=== PATIENT | male | born 1985 | race Caucasian/White ===

== ENCOUNTER 2018-07-25 06:03 | Inpatient (IN) ==
[2018-07-25] MEDS ORDERED: MoRPHine SULFATE 10 MG/ML CARP/VIAL IV STA (06:10)
[2018-07-25] MEDS ORDERED: MoRPHine SULFATE 2 MG/ML CARP ONE (06:18)
[2018-07-25] MEDS ORDERED: MoRPHine SULFATE 4 MG/ML 1 ML CARP\\VIAL ONE (06:19)
[2018-07-25] MEDS ORDERED: VANCOMYCIN HCL 1,000 MG/270 ML BAG IV STA (06:25)
[2018-07-25] MEDS ORDERED: KETOROLAC 30 MG/ML VIAL IV STA (06:25)
[2018-07-25] MEDS ORDERED: AZTREONAM 2,000 MG in DEXTROSE 5% 100 ML IV STA (06:25)
[2018-07-25] MEDS ORDERED: SODIUM CHLORIDE 0.9% 1000ML 1,000 ML IV ONE (06:25)
[2018-07-25] MEDS ORDERED: LEVOFLOXACIN/D5W 750 MG/150 ML BAG IV STA (06:25)
[2018-07-25] MEDS ORDERED: VANCOMYCIN CONSULT ACTIVE PRN ×2 (06:25→11:33)
[2018-07-25] MEDS ORDERED: LIDOCAINE/EPINEPHRINE 1% 20 ML VIAL INFIL ONE (06:25)
[2018-07-25 06:36] LABS: Basophils # (auto) 0.05 K/uL (0-0.2); Basophils % (auto) 0.2 %; Eosinophils # (auto) 0.09 K/uL (0-0.5); Eosinophils % (auto) 0.4 %; Hematocrit (blood only) 45.4 % (42-52); Hemoglobin 17.1 g/dL (14.0-18.0); Immature Granulocytes # (auto) 0.11 K/uL (0.00-0.02); Immature Granulocytes % (auto) 0.5 %; Lymphocytes # (auto) 1.81 K/uL (1.2-3.4); Lymphocytes % (auto) 8.1 %; Mean Corpuscular Hgb Conc 37.7 g/dL (32-36); Mean Corpuscular Volume 87.8 fL (80-100); Mean Platelet Volume 9.6 fL (7.4-10.4); Monocytes # (auto) 2.03 K/uL (0.11-0.59); Monocytes % (auto) 9.1 %; Neutrophils # (auto) 18.13 K/uL (1.4-6.5); Neutrophils % (auto) 81.7 %; Platelet Count 325 K/uL (130-400); RDW Coefficient of Variation 12.1 % (11.5-14.5); RDW Standard Deviation 38.8 fL (36.4-46.3); Red Blood Count 5.17 M/uL (4.7-6.1); White Blood Count 22.22 K/uL (4.8-10.8)
--- NOTE | 2018-07-25 06:44 | XRay Report ---
XR chest 1V portable CLINICAL HISTORY: Sepsis dyspnea COMPARISON STUDY: No previous studies for comparison. FINDINGS: The bones soft tissues and hemidiaphragms are normal. The cardiomediastinal silhouette is n ormal. The lungs are clear. The pulmonary vasculature is normal. IMPRESSION: Negative chest. The above report was generated using voice recognition software. It may contain grammatical, syntax or spelling errors. Electronically signed by: Masoud Zheng M.D. 07/25/2018 6:42 AM
[2018-07-25] MEDS: HYDROmorphone INJ 1 MG/ML SYRINGE IV PRN ×9 (06:47→21:44)
[2018-07-25 06:49] LABS: INR 1.1 (0.9-1.1); Partial Thromboplastin Ratio 1.1; Prothrombin Time 10.8 Seconds (9.0-12.0)
[2018-07-25 06:59] LABS: Alanine Aminotransferase 25 U/L (12-78); Albumin Level 3.7 gm/dl (3.4-5.0); Aspartate Aminotransferase 12 U/L (15-37); BUN Creatinine Ratio 10.4 (10-20); Blood Urea Nitrogen 13 mg/dl (7-18); Calcium 9.5 mg/dl (8.5-10.1); Carbon Dioxide 24 mmol/L (21-32); Chloride 99 mmol/L (98-107); Creatinine Clr Calc Pharmacy 126.3 ml/min; Est GFR (African American) 88.8; Est GFR (Non-African American) 76.7; Glucose 95 mg/dl (70-99); Potassium 3.7 mmol/L (3.5-5.1); Sodium 132 mmol/L (136-145)
[2018-07-25 07:04] LABS: Albumin Globulin Ratio 0.7 (0.9-2); Alkaline Phosphatase 72 U/L (45-117); Creatine Kinase 110 U/L (39-308); Creatine Kinase MB < 1.0 ng/ml (0.5-3.6); Globulin 5.6 gm/dl (2.5-4.0); Total Protein 9.3 gm/dl (6.4-8.2); Troponin I < 0.015 ng/ml (0-0.045)
--- NOTE | 2018-07-25 07:17 | XRay Report ---
XR ankle LT min 3V routine CLINICAL HISTORY: Pt c/o left ankle pain pain COMPARISON: None. DISCUSSION: The bones and joint spaces appear intact. There is no evidence of fracture, dislocation o r bony disease. Medial soft tissue edema IMPRESSION: 1. No acute bony abnormality. 2. Medial soft tissue edema. The above report was generated using voice recognition software. It may contain grammatical, syntax or spelling errors. Electronically signed by: Masoud Zheng M.D. 07/25/2018 7:16 AM
--- NOTE | 2018-07-25 08:06 | Ultrasound Report ---
US extremity non-vascular ltd CLINICAL HISTORY: Assess infection area for abscess COMPARISON STUDY: No previous studies for comparison. FINDINGS: Complex irregular collection medial aspect left ankle. Maximum dimensions of 3.9 x 3.5 cm. Diagnostic considerations include the possibility of abscess versus hematoma. IMPRESSION: Hematoma versus abscess medial aspect left ankle. Dimensions are 3.9 x 3.5 cm. The above report was generated using voice recognition software. It may contain grammatical, syntax or spelling errors. Electronically signed by: Masoud Zheng M.D. 07/25/2018 8:03 AM
--- NOTE | 2018-07-25 10:15 | History & Physical Report ---
Date of Service July 25, 2018 Assessment & Plan (1) Cellulitis: (2) Abscess of left lower extremity: Was sent from the [facility] from left ankle abscess, erythema and tenderness. He was starting on Bactrim yesterday. LLE extremities U/S showed hematoma versus abscess medial aspect left ankle. Dimensions are 3.9 x 3.5 cm. Left ankle xray showed medial soft tissue edema. 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 Chronic pain Reflex sympathetic dystrophy Has been asking for dilaudid Will do IV pain med for about 24 to 48 hrs, than transion to oral Anxiety Depression Continue Effexor 187.5 daily Propranolol for the anxiety Continue Vystaryl prn Tourette Syndrome Continue haloperidol his current dose ADHD Ritalin was taper off by provider at the [facility] DVT px Will encourage pt to ambulate (No anticoagulant due to recent I&D) (No SCDS due to cellulitis/ pain and I&D in left L ankle CODE status FULL CODE Disposition Was being treated at the [facility] Consult telephonic case manager History of Present Illness Chief Complaint: Left ankle abscess and Cellulitis Primary Care Provider: NO PCP 33 years old male with past medical history of myotonic dystrophy, reflex sympathetic dystrophy, chronic pain, depression, general anxiety, ADHD, PTSD was sent from the [facility] for left ankle redness, swelling and pain. Patient said last Wednesday while in [facility], he said that he bumped his left ankle. He said that previously do not the area started to get red and painful. Patient said in the last few days the erythema swelling and tenderness got worse. He said that pain worsening with touching, standing or walking on his left foot. Pain improved with rest or with the pain med. Patient said that he started to have chills. He was started on double strength Bactrim yesterday. Patient has been in the [facility] in the past week. He said that he is on medical marijuana but he has not been using it since he got to the [facility]. In the ER the left ankle area incision and drainage was done by the ER physician. Patient said that he continued to have severe pain in the left ankle patient and has been asking for dilaudid. I called the [facility] to verify his medication list. denies any chest pain, palpitation, dizziness, and shortness of breath. Allergies Allergy/AdvReac Type Severity Reaction Status Date / Time codeine Allergy Mild Unknown Verified 07/26/18 14:17 Penicillins Allergy Mild Unknown Verified 07/26/18 14:17 amoxicillin Allergy Unknown Verified 07/26/18 14:17 bee venom protein (honey bee) Allergy Unknown Verified 07/26/18 14:17 Home Medications Home Medications Medication Instructions Recorded Confirmed Type benztropine 0.5 mg PO .QAM & 1400 07/25/18 07/25/18 History benztropine 1 mg PO BID 07/25/18 07/25/18 History clonidine HCl 0.3 mg PO TID 07/25/18 07/25/18 History diphenhydramine HCl [Benadryl] 50 mg PO HS 07/25/18 07/25/18 History haloperidol 2.5 mg PO . Q 1400 07/25/18 07/25/18 History haloperidol 5 mg PO BID 07/25/18 07/25/18 History hydroxyzine pamoate [Vistaril] 50 mg PO Q8 PRN 07/25/18 07/25/18 History ibuprofen 600 mg PO Q6H PRN 07/25/18 07/25/18 History lidocaine 1 patch TOPICAL DAILY PRN 07/25/18 07/25/18 History methocarbamol [Robaxin] 1,000 mg PO TID PRN 07/25/18 07/25/18 History propranolol 60 mg PO QAM 07/25/18 07/25/18 History sulfamethoxazole-trimethoprim 1 tab PO Q12H 07/25/18 07/25/18 History [Bactrim DS] venlafaxine [Effexor XR] 37.5 mg PO QAM 07/25/18 07/25/18 History venlafaxine [Effexor XR] 150 mg PO QAM 07/25/18 07/25/18 History Past Med/Surg History Medical History History of seizure Abscess of right lower extremity Cellulitis (Acute) Tourette syndrome History of MRSA infection Social History Preferred Language: Citizen Of [place] Communication Ability: Effective Specialty Cook Required: No Beliefs That Will Affect Care: None Current Living Situation: Alone and Other Current Living Situation Comment: At [place] for medication adjustment for Tourette syndrome Other Information That Helps Us Care for You: Yes (History of RSDS (reflex sympathetic dystrophy syndrome)) Feels Safe at Home: Yes Safety Concerns: Feels Safe At This Time Smoking Status: Current every day smoker Tobacco Type: cigarettes Cigarettes Per Day: 20 Do You Dip or Chew Tobacco: No Second Hand Exposure: No Tobacco Cessation Education Requested by Patient: No Hx Alcohol Use: No Hx Substance Use: Yes substance use type: marijuana Substance Use Type Other:: on Medical Marijuana for RSD (less than 1 joint's worth a day) Last Used Substance: Unknown Last Used Substance Other:: off opiates for RSD Review of Systems Review of Systems: All systems reviewed & are unremarkable except as noted in HPI & below Physical Exam Physical Exam: General- No acute distress Head- atraumatic Eyes- PERRL, EOMI, ENT- oropharynx clear Neck- supple, no JVD Lungs- clear to auscultation Heart- regular rhythm; no murmur Abdomen- normal bowel sounds, soft, nontender, obese Extremities- no calf tenderness, Left medial ankle area redness, swelling, open area from I&D with drainage Neuro- alert, oriented x 3; PERRL, EOMI; no facial palsy; no dysarthria Skin- warm & dry Results & Data Vital Signs (Past 12 Hours) Vital Signs Temp Pulse Pulse Resp BP BP Pulse Ox 07/25/18 09:53 74 16 130/81 96 07/25/18 09:02 88 18 129/72 96 07/25/18 08:24 80 18 137/84 95 07/25/18 07:33 80 16 100/77 96 07/25/18 06:54 95 07/25/18 06:53 36.8 C 84 20 132/88 95 07/25/18 06:06 37.5 C 93 H 20 125/87 97 Diagnostic Findings R ankle LT min 3V routine CLINICAL HISTORY: Pt c/o left ankle pain pain COMPARISON: None. DISCUSSION: The bones and joint spaces appear intact. There is no evidence of fracture, dislocation or bony disease. Medial soft tissue edema IMPRESSION: 1. No acute bony abnormality. 2. Medial soft tissue edema. The above report was generated using voice recognition software. It may contain grammatical, syntax or spelling errors. Electronically signed by: Masoud Zheng M.D. 07/25/2018 7:16 AM Dictated: 07/25/18 0715 Transcribed: 07/25/18714 US extremity non-vascular ltd CLINICAL HISTORY: Assess infection area for abscess COMPARISON STUDY: No previous studies for comparison. FINDINGS: Complex irregular collection medial aspect left ankle. Maximum dimensions of 3.9 x 3.5 cm. Diagnostic considerations include the possibility of abscess versus hematoma. IMPRESSION: Hematoma versus abscess medial aspect left ankle. Dimensions are 3.9 x 3.5 cm. The above report was generated using voice recognition software. It may contain grammatical, syntax or spelling errors. Electronically signed by: Masoud Zheng M.D. 07/25/2018 8:03 AM Dictated: 07/25/18 0803 Transcribed: 07/25/18 0803 R chest 1V portable CLINICAL HISTORY: Sepsis dyspnea COMPARISON STUDY: No previous studies for comparison. FINDINGS: The bones soft tissues and hemidiaphragms are normal. The cardiomedias tinal silhouette is normal. The lungs are clear. The pulmonary vasculature is normal. IMPRESSION: Negative chest. The above report was generated using voice recognition software. It may contain grammatical, syntax or spelling errors. Electronically signed by: Masoud Zheng M.D. 07/25/2018 6:42 AM Dictated: 07/25/18 0642 Transcribed: 07/25/18 0642
[2018-07-25] MEDS ORDERED: LIDOCAINE 5% 1 PATCH TD PRN (11:33)
[2018-07-25] MEDS ORDERED: IBUPROFEN 600 MG TAB PO PRN (11:33)
--- NOTE | 2018-07-25 11:51 | Emergency Department Note ---
Entered by Jyotsna Price acting as a scribe for Sumanth Albarran MD History of Present Illness General Chief complaint: Infection Stated complaint: ankle infection Time Seen by Provider: 07/25/18 06:19 Source: patient Mode of arrival: EMS Limitations: no limitations History of Present Illness Onset (ago): week(s) 1 Location: left (leg) Radiation: non-radiation Pain Consistency: + constant Maximum Pain Intensity: 8 Current Pain Intensity: 8 Relieved By: + none Exacerbated By: + movement Associated symptoms: + denies other symptoms Treatments prior to arrival: none The patient is a 33 year old male who presents to the ED with complaints of a worsening skin infection. He states about a week ago, he was jet skiing in [place] when he banged his left leg, and developed an infection. He believes he was in both bay water and sea water. He rates his pain as an 8/10 in severity. Movement worsens his pain. He notes he does have a history of prior MRSA infection. Home Medications Home Medications Medication Instructions Recorded Confirmed Type benztropine 0.5 mg PO .QAM & 1400 07/25/18 07/25/18 History benztropine 1 mg PO BID 07/25/18 07/25/18 History clonidine HCl 0.3 mg PO TID 07/25/18 07/25/18 History diphenhydramine HCl [Benadryl] 50 mg PO HS 07/25/18 07/25/18 History haloperidol 2.5 mg PO . Q 1400 07/25/18 07/25/18 History haloperidol 5 mg PO BID 07/25/18 07/25/18 History hydroxyzine pamoate [Vistaril] 50 mg PO Q8 PRN 07/25/18 07/25/18 History ibuprofen 600 mg PO Q6H PRN 07/25/18 07/25/18 History lidocaine 1 patch TOPICAL DAILY PRN 07/25/18 07/25/18 History methocarbamol [Robaxin] 1,000 mg PO TID PRN 07/25/18 07/25/18 History propranolol 60 mg PO QAM 07/25/18 07/25/18 History sulfamethoxazole-trimethoprim 1 tab PO Q12H 07/25/18 07/25/18 History [Bactrim DS] venlafaxine [Effexor XR] 37.5 mg PO QAM 07/25/18 07/25/18 History venlafaxine [Effexor XR] 150 mg PO QAM 07/25/18 07/25/18 History Allergies Allergy/AdvReac Type Severity Reaction Status Date / Time codeine Allergy Mild Unknown Unverified 07/25/18 06:41 Penicillins Allergy Mild Unknown Unverified 07/25/18 06:41 bee venom protein (honey bee) Allergy Unknown Verified 07/25/18 06:41 Past Med/Surg History Medical History Tourette syndrome History of MRSA infection Social History Preferred Language: Israeli Communication Ability: Effective Visual Specialist Required: No Beliefs That Will Affect Care: None Current Living Situation: Alone and Other Current Living Situation Comment: At [facility] for medication adjustment for Tourette syndrome Other Information That Helps Us Care for You: Yes (History of RSDS (reflex sympathetic dystrophy syndrome)) Feels Safe at Home: Yes Safety Concerns: Feels Safe At This Time Smoking Status: Current every day smoker Tobacco Type: cigarettes Cigarettes Per Day: 20 Do You Dip or Chew Tobacco: No Second Hand Exposure: No Tobacco Cessation Education Requested by Patient: No Hx Alcohol Use: No Hx Substance Use: Yes substance use type: marijuana Substance Use Type Other:: on Medical Marijuana for RSD (less than 1 joint's worth a day) Last Used Substance: Unknown Last Used Substance Other:: off opiates for RSD Review of Systems See HPI for pertinent positives & negatives. and A total of 10 systems reviewed and were otherwise negative Physical Exam Vital Signs Vital Signs - 24 hr 07/25/18 06:06 07/25/18 06:53 07/25/18 06:54 Temperature 37.5 C 36.8 C Temperature Source Oral Oral Sepsis Recent Fever Within 48 Hours Yes Sepsis New/Unexplained Change in Mental Status No Sepsis Action Taken by Nursing No Action Required Pulse Rate 93 H Pulse Rate [Right Finger] 84 Pulse Rhythm Regular Pulse Rhythm [Right Finger] Regular Pulse Strength Normal Pulse Strength [Right Finger] Normal Respiratory Rate 20 20 Respiratory Effort / Characteristics Non-Labored Spontaneous Non-Labored Spontaneous Respiratory Depth Normal Normal Blood Pressure 125/87 Blood Pressure [Right Arm] 132/88 Blood Pressure Mean 99 Blood Pressure Mean [Right Arm] 102 Pulse Oximetry 97 95 95 Oxygen Delivery Method Room Air Room Air Room Air 07/25/18 07:33 07/25/18 08:24 07/25/18 09:02 Temperature Temperature Source Sepsis Recent Fever Within 48 Hours Sepsis New/Unexplained Change in Mental Status Sepsis Action Taken by Nursing Pulse Rate Pulse Rate [Right Finger] 80 80 88 Pulse Rhythm Pulse Rhythm [Right Finger] Pulse Strength Pulse Strength [Right Finger] Respiratory Rate 16 18 18 Respiratory Effort / Characteristics Respiratory Depth Blood Pressure Blood Pressure [Right Arm] 100/77 137/84 129/72 Blood Pressure Mean Blood Pressure Mean [Right Arm] 84 101 91 Pulse Oximetry 96 95 96 Oxygen Delivery Method Room Air Room Air Room Air 07/25/18 09:53 Temperature Temperature Source Sepsis Recent Fever Within 48 Hours Sepsis New/Unexplained Change in Mental Status Sepsis Action Taken by Nursing Pulse Rate Pulse Rate [Right Finger] 74 Pulse Rhythm Pulse Rhythm [Right Finger] Pulse Strength Pulse Strength [Right Finger] Respiratory Rate 16 Respiratory Effort / Characteristics Respiratory Depth Blood Pressure Blood Pressure [Right Arm] 130/81 Blood Pressure Mean Blood Pressure Mean [Right Arm] 97 Pulse Oximetry 96 Oxygen Delivery Method Room Air GENERAL: Awake, alert, well-appearing, in no acute distress HENT: Normocephalic, atraumatic. Oropharynx unremarkable. EYES: Normal conjunctiva. Sclera non-icteric. NECK: Supple. No nuchal rigidity. FROM. No JVD. RESPIRATORY: Clear to auscultation. CARDIAC: Regular rate, normal rhythm. Extremities warm and well perfused. Pulses equal. ABDOMEN: Soft, non-distended. No tenderness to palpation. No rebound or guarding. No masses. RECTAL: Deferred. MUSCULOSKELETAL: Chest examination reveals no tenderness. The back is symmetrical on inspection without obvious abnormality. There is no CVA tenderness to palpation. No joint edema. LOWER EXTREMITIES: Calves are equal size bilaterally and non-tender. There is an area around the left ankle that is grossly swollen, there appears to be an abscess cavity present, about a quarter size, area of erythema is circumferential around the ankle about 6 inches by 6 inches in size. NEURO: Normal sensorium. No sensory or motor deficits noted. SKIN: No rash or jaundice noted. Procedures Free Text Procedures Incision & Drainage Indication: Abscess. Location: Left Ankle Verbal consent was obtained after the risks and benefits were explained, including but not limited to bleeding, scarring, infection, pain, and bone/joint/nerve damage. At this time, the risks of the procedure are less than the risks of NOT performing the procedure. A time out was taken and the correct patient and site identified. The skin was prepped with betadine and a sterile field set. The wound was anesthetized with 10 ml of 1% lidocaine without epinep hrine. The abscess cavity was entered with a number 11 blade and bloody purulent material expressed. Copious irrigation was performed using 500 CC NSS. The wound was explored for foreign bodies and none found. Debridement was not performed. Packing placed and a sterile dressing applied. Detailed wound care instructions and signs and symptoms of worsening infection reviewed with the patient. No complications and the patient tolerated the procedure well. Course 0623: The patient was evaluated in room B10 and a complete history and physical were performed. 0831: I reevaluated the patient. He is resting comfortably. 0848: [facility] The patient will be further evaluated. Consultations Consultation #1: [facility] The patient will be further evaluated. Time: 08:48 Administered Medications Discontinued Medications Hydromorphone HCl (Dilaudid) 1 mg IV Q15M PRN PRN Reason: Pain Stop: 08/08/18 06:24 Last Admin: 07/25/18 09:05 Dose: 1 mg Documented by: [id number] Admin: 07/25/18 08:24 Dose: 1 mg Documented by: [id number] Admin: 07/25/18 07:34 Dose: 1 mg Documented by: [id number] Admin: 07/25/18 07:02 Dose: 1 mg Documented by: [id number] Admin: 07/25/18 06:47 Dose: 1 mg Documented by: [id number] Aztreonam 2,000 mg/ Dextrose 110 mls @ 100 mls/hr IV NOW STA; Protocol Stop: 07/25/18 07:30 Last Infusion: 07/25/18 09:52 Dose: 0 mls/hr Documented by: [id number] Admin: 07/25/18 08:23 Dose: 100 mls/hr Documented by: [id number] Levofloxacin/Dextrose (Levaquin/D5w) 750 mg in 150 mls @ 100 mls/hr IV NOW STA Stop: 07/25/18 07:54 Last Infusion: 07/25/18 08:18 Dose: 0 mls/hr Documented by: [id number] Admin: 07/25/18 06:50 Dose: 100 mls/hr Documented by: [id number] Sodium Chloride (Nss 1000ml) 1,000 mls @ 999 mls/hr IV .Q1H1M ONE Stop: 07/25/18 07:25 Last Infusion: 07/25/18 08:18 Dose: 0 mls/hr Documented by: [id number] Admin: 07/25/18 06:52 Dose: 999 mls/hr Documented by: [id number] Vancomycin HCl (Vancomycin Hcl) 1,000 mg in 270 mls @ 125 mls/hr IV NOW STA Stop: 07/25/18 08:34 Last Admin: 07/25/18 09:53 Dose: 125 mls/hr Documented by: [id number] Ketorolac Tromethamine (Toradol) 30 mg IV NOW STA Stop: 07/25/18 06:26 Last Admin: 07/25/18 06:47 Dose: 30 mg Documented by: [id number] Lidocaine/Epinephrine (Xylocaine/Epinephrine 1%) 20 ml INFIL NOW ONE Stop: 07/25/18 06:26 Last Admin: 07/25/18 08:45 Dose: 20 ml Documented by: [id number] Morphine Sulfate (Morphine Sulfate) 6 mg IV NOW STA Stop: 07/25/18 06:11 Last Admin: 07/25/18 06:27 Dose: 6 mg Documented by: [id number] Morphine Sulfate (Morphine Sulfate) Confirm Administered Dose 2 mg .ROUTE .STK- MED ONE Stop: 07/25/18 06:19 Last Admin: 07/25/18 06:27 Dose: Not Given Documented by: [id number] Morphine Sulfate (Morphine Sulfate) Confirm Administered Dose 4 mg .ROUTE .STK- MED ONE Stop: 07/25/18 06:20 Last Admin: 07/25/18 06:27 Dose: 4 mg Documented by: [id number] Medical Decision Making Differential Diagnosis Differential diagnosis includes etiologies such as cellulitis, abscess, MRSA infection, DVT, necrotizing fasciitis, dermatitis, drug eruption, as well as others were entertained. Medical Records Attestation: I reviewed the patient's medical records. Home Medications Current Medication List: was personally reviewed by me Laboratory Data Attestation: I reviewed the patient's lab results. Result diagrams: 07/25/18 06:23 07/25/18 06:23 Lab Results 07/25/18 07/25/18 07/25/18 Range/Units 06:23 06:23 06:23 WBC 22.22 H (4.8-10.8) K/uL RBC 5.17 (4.7-6.1) M/uL Hgb 17.1 (14.0-18.0) g/dL Hct 45.4 (42-52) % MCV 87.8 (80-100) fL MCH 33.1 (25-34) pg MCHC 37.7 H (32-36) g/dL RDW Std Deviation 38.8 (36.4-46.3) fL RDW Coeff of Leon 12.1 (11.5-14.5) % Plt Count 325 (130-400) K/uL MPV 9.6 (7.4-10.4) fL Immature Gran % (Auto) 0.5 % Neut % (Auto) 81.7 % Lymph % (Auto) 8.1 % Parke % (Auto) 9.1 % Eos % (Auto) 0.4 % Baso % (Auto) 0.2 % Immature Gran # (Auto) 0.11 H (0.00-0.02) K/uL Neut # (Auto) 18.13 H (1.4-6.5) K/uL Lymph # (Auto) 1.81 (1.2-3.4) K/uL Parke # (Auto) 2.03 H (0.11-0.59) K/uL Eos # (Auto) 0.09 (0-0.5) K/uL Baso # (Auto) 0.05 (0-0.2) K/uL PT 10.8 (9.0-12.0) Seconds INR 1.1 (0.9-1.1) APTT 30.0 (21.0-31.0) Seconds PTT Ratio 1.1 Sodium 132 L (136-145) mmol/L Potassium 3.7 (3.5-5.1) mmol/L Chloride 99 (98-107) mmol/L Carbon Dioxide 24 (21-32) mmol/L Anion Gap 9.0 (3-11) BUN 13 (7-18) mg/dl Creatinine 1.23 (0.6-1.4) mg/dl Est Cr Clr Drug Dosing 126.3 ml/min Est GFR ( Amer) 88.8 Est GFR (Non-Af Amer) 76.7 BUN/Creatinine Ratio 10.4 (10-20) Glucose 95 (70-99) mg/dl Lactate (0.4-2.0) mmol/L Calcium 9.5 (8.5-10.1) mg/dl Total Bilirubin 1.0 (0.2-1) mg/dl AST 12 L (15-37) U/L ALT 25 (12-78) U/L Alkaline Phosphatase 72 (45-117) U/L Total Creatine Kinase 110 (39-308) U/L CK-MB (CK-2) < 1.0 (0.5-3.6) ng/ml CK/CKMB % Calc TNP Troponin I < 0.015 (0-0.045) ng/ml Total Protein 9.3 H (6.4-8.2) gm/dl Albumin 3.7 (3.4-5.0) gm/dl Globulin 5.6 H (2.5-4.0) gm/dl Albumin/Globulin Ratio 0.7 L (0.9-2) 07/25/ Range/Units 06:25 WBC (4.8-10.8) K/uL RBC (4.7-6.1) M/uL Hgb (14.0-18.0) g/dL Hct (42-52) % MCV (80-100) fL MCH (25-34) pg MCHC (32-36) g/dL RDW Std Deviation (36.4-46.3) fL RDW Coeff of Leon (11.5-14.5) % Plt Count (130-400) K/uL MPV (7.4-10.4) fL Immature Gran % (Auto) % Neut % (Auto) % Lymph % (Auto) % Parke % (Auto) % Eos % (Auto) % Baso % (Auto) % Immature Gran # (Auto) (0.00-0.02) K/uL Neut # (Auto) (1.4-6.5) K/uL Lymph # (Auto) (1.2-3.4) K/uL Parke # (Auto) (0.11-0.59) K/uL Eos # (Auto) (0-0.5) K/uL Baso # (Auto) (0-0.2) K/uL PT (9.0-12.0) Seconds INR (0.9-1.1) APTT (21.0-31.0) Seconds PTT Ratio Sodium (136-145) mmol/L Potassium (3.5-5.1) mmol/L Chloride (98-107) mmol/L Carbon Dioxide (21-32) mmol/L Anion Gap (3-11) BUN (7-18) mg/dl Creatinine (0.6-1.4) mg/dl Est Cr Clr Drug Dosing ml/min Est GFR ( Amer) Est GFR (Non-Af Amer) BUN/Creatinine Ratio (10-20) Glucose (70-99) mg/dl Lactate 1.0 (0.4-2.0) mmol/L Calcium (8.5-10.1) mg/dl Total Bilirubin (0.2-1) mg/dl AST (15-37) U/L ALT (12-78) U/L Alkaline Phosphatase (45-117) U/L Total Creatine Kinase (39-308) U/L CK-MB (CK-2) (0.5-3.6) ng/ml CK/CKMB % Calc Troponin I (0-0.045) ng/ml Total Protein (6.4-8.2) gm/dl Albumin (3.4-5.0) gm/dl Globulin (2.5-4.0) gm/dl Albumin/Globulin Ratio (0.9-2) Imaging Data Radiologist's Impression: Radiology results as stated below per my review and the radiologist's interpretation: XR chest 1V portable CLINICAL HISTORY: Sepsis dyspnea COMPARISON STUDY: No previous studies for comparison. FINDINGS: The bones soft tissues and hemidiaphragms are normal. The cardiomediastinal silhouette is normal. The lungs are clear. The pulmonary vasculature is normal. IMPRESSION: Negative chest. The above report was generated using voice recognition software. It may contain grammatical, syntax or spelling errors. Electronically signed by: Masoud Zheng M.D. 07/25/2018 6:42 AM XR ankle LT min 3V routine CLINICAL HISTORY: Pt c/o left ankle pain pain COMPARISON: None. DISCUSSION: The bones and joint spaces appear intact. There is no evidence of fracture, dislocation or bony disease. Medial soft tissue edema IMPRESSION: 1. No acute bony abnormality. 2. Medial soft tissue edema. The above report was generated using voice recognition software. It may contain grammatical, syntax or spelling errors. Electronically signed by: Masoud Zheng M.D. 07/25/2018 7:16 AM [facility] CLINICAL HISTORY: Assess infection area for abscess COMPARISON STUDY: No previous studies for comparison. FINDINGS: Complex irregular collection medial aspect left ankle. Maximum dimensions of 3.9 x 3.5 cm. Diagnostic considerations include the possibility of abscess versus hematoma. IMPRESSION: Hematoma versus abscess medial aspect left ankle. Dimensions are 3.9 x 3.5 cm. The above report was generated using voice recognition software. It may contain grammatical, syntax or spelling errors. Electronically signed by: Masoud Zheng M.D. 07/25/2018 8:03 AM ECG Data Attestation: I personally reviewed and interpreted this ECG as follows: Indication: other (infection) Rate (beats per minute): 88 Rhythm: normal sinus Findings: no ST depression and no ST elevation Blood Pressure Blood Pressure Findings: Elevated blood pressure Blood Pressure Disposition: elevated BP felt to be situational MDM Narrative This is a 33-year-old male who presents emergency department complaining of cellulitis and what appears to be an abscess to his leg. The patient was waterskiing in brackish water in [place] therefore I am concerned about vibrio. The patient was started on broad-spectrum antibiotics including aztreonam Levaquin and vancomycin. He also does have a history of MRSA. The wound was opened as above and irrigated with normal saline. Wound cultures were obtained. Patient does have an elevation in his white blood cell count. Because of the p atient's history I did discuss the case with the hospitalist service who agreed to admit the patient. Patient was in agreement with the treatment plan. Impression & Plan Cellulitis Discharge Plan Visit Data Chief Complaint: Infection Stated Complaint: ankle infection ED Provider: Sumanth Albarran Discharge Problem: Cellulitis Patient Disposition: Being Evaluated by Hospitalist Discharge Instructions Interventions: ED Discharge Assessment Last Done: 07/25/18 11:16 The scribe's documentation has been prepared under my direction and personally reviewed by me in its entirety. I confirm that the note above accurately reflects all work, treatment, procedures, and medical decision making performed by me.
--- NOTE | 2018-07-25 12:44 | Pharmacy Report ---
Pharmacy Abx Initial Consult - Date of Service July 25, 2018 - Pharmacy Dosing Scope Date of Consult: 07/25/18 Consultation requested by: Dr. Wilson Pharmacy is consulted to initiate Vancomycin IV dosing therapy, order appropriate labs and adjust drug dose/frequency. - Subjective The patient is a 33 year old M admitted on 07/25/18 10:19 with LLE Cellulitis and abscess of ankle. - Objective Height: 6 ft 2 in Weight: 138 kg Vital Signs (Past 12hrs): Vital Signs Temp Pulse Pulse Resp BP BP BP 07/25/18 11:29 36.9 C 78 20 149/92 H 07/25/18 11:00 77 16 143/80 H 07/25/18 09:53 74 16 130/81 07/25/18 09:02 88 18 129/72 07/25/18 08:24 80 18 137/84 07/25/18 07:33 80 16 100/77 07/25/18 06:54 07/25/18 06:53 36.8 C 84 20 132/88 07/25/18 06:06 37.5 C 93 H 20 125/87 Pulse Ox 07/25/18 11:29 97 07/25/18 11:00 96 07/25/18 09:53 96 07/25/18 09:02 96 07/25/18 08:24 95 07/25/18 07:33 96 07/25/18 06:54 95 07/25/18 06:53 95 07/25/18 06:06 97 Lab Results (24hrs): Laboratory Tests (24 Hours) 07/25/18 07/25/18 06:23 06:23 WBC 22.22 H Neut # (Auto) 18.13 H Creatinine 1.23 Est Cr Clr Drug Dosing 126.3 Total Creatine Kinase 110 Micro Results: 07/25/18 06:05 Gram Stain - Final Ankle,Left Wound Culture - Pending 07/25/18 06:42 Aerobic Blood Culture - Pending Blood Anaerobic Blood Culture - Pending 07/25/18 06:23 Aerobic Blood Culture - Pending Blood Anaerobic Blood Culture - Pending - Risk Factors for Resistance * Patient currently resident at the [facility] * Antimicrobial use within the last 90 days - started PO Bactrim DS yesterday * Patient reports history of MRSA - Assessment & Plan Assessment 33 year old M admitted from [facility] with cellulitis and Abscess of right lower extremity, initially due to jet skiing injury. Started on Bactrim DS yesterday. S/P I&D done in the ER. Received Aztreonam in the ER. Wound and blood cultures pending. Starting Vancomycin and Rocephin IV. Plan IV Vancomycin for treatment of cellulitis and abscess of right ankle. Vancomycin IV * Estimated PK Parameters: Vd 0.6 L/kg, [facility] 0.1hr-1, t1/2 6.9hr * Loading dose: 1000 mg in ED + 2500mg IV on floor = 3500mg (25 mg/kg) * Maintenance dose: 1750 mg IV (12.7 mg/kg) every 8 hours * Goal trough level for cellulitis + abscess : 15 to 20 mcg/mL * Trough level ordered for 07/26/18, will need to consider possibility of accumulation once volume fills in obese patient. * A less than traditional dose has been selected due to likelihood of drug accumulation in obese patient. Pharmacy will continue to follow and will adjust dose/frequency as necessary. Thank you.
[2018-07-25] MEDS ORDERED: cefTRIAXone SODIUM 2,000 MG in DEXTROSE 5% 50 ML IV SCH (13:00)
[2018-07-25] MEDS ORDERED: VANCOMYCIN HCL 2,500 MG in SODIUM CHLORIDE 0.9% 500 ML IV ONE (13:00)
[2018-07-25] MEDS: HYDROCODONE/ACETAMOPHEN 5/325MG TAB PO PRN ×2 (13:19→19:23)
[2018-07-25] MEDS: NICOTINE POLACRILEX 2 MG GUM MT PRN ×5 (13:21→21:33)
[2018-07-25] MEDS: BENZTROPINE MESYLATE 0.5 MG TAB PO SCH (13:21)
[2018-07-25] MEDS: HALOPERIDOL 5 MG TAB PO SCH ×2 (13:22→21:34)
[2018-07-25] MEDS: PROPRANOLOL HCL 60 MG LA CAP PO SCH (13:24)
[2018-07-25] MEDS: VENLAFAXINE HCL XR 75 MG CAPXR PO SCH (14:22)
[2018-07-25] MEDS: VENLAFAXINE HCL XR 37.5 MG CAPXR PO SCH (14:22)
[2018-07-25] MEDS ORDERED: KETOROLAC TROMETHAMINE 15 MG/ML VIAL IV PRN (14:29)
[2018-07-25] MEDS: METHOCARBAMOL 500 MG TABLET PO PRN (15:53)
[2018-07-25] MEDS: DOCUSATE SODIUM 100 MG CAP PO SCH ×2 (16:59→21:33)
[2018-07-25] MEDS ORDERED: PROMETHAZINE HCL 12.5 MG in SODIUM CHLORIDE 0.9% 50 ML IV PRN (18:46)
[2018-07-25] MEDS: BENZTROPINE MESYLATE 1 MG TAB PO SCH (21:35)
[2018-07-25] MEDS: VANCOMYCIN HCL 1,750 MG in SODIUM CHLORIDE 0.9% 500 ML IV SCH (21:45)
[2018-07-25] MEDS ORDERED: KETOROLAC 30 MG/ML VIAL IV ONE (22:25)
[2018-07-25] MEDS ORDERED: OPTIRAY 320 125ml IV PRN (23:59)
[2018-07-26] MEDS: HYDROCODONE/ACETAMOPHEN 5/325MG TAB PO PRN ×3 (00:06→08:42)
[2018-07-26] MEDS: NSS + 20MEQ KCL 20 MEQ/1,000 ML BAG IV SCH ×2 (00:55→12:54)
[2018-07-26] MEDS: HYDROmorphone INJ 1 MG/ML SYRINGE IV PRN ×12 (00:56→21:30)
[2018-07-26] MEDS ORDERED: CLINDAMYCIN 900 MG in DEXTROSE 5% 50 ML IV ONE (01:24)
[2018-07-26] MEDS: NICOTINE POLACRILEX 2 MG GUM MT PRN ×6 (01:25→23:57)
--- NOTE | 2018-07-26 01:27 | Hospitalist Progress Note ---
Date of Service July 26, 2018 Subjective Made aware by RN of worsening redness on left ankle. Persistent bloody, purulent discharge as per RN. Patient complaining of increased pain. No fever, no chills. CT lower LLE initial read: Skin thickening upper medial aspect of left ankle associated with soft tissue edema and gas concerning for soft tissue infection/cellulitis. Gas could be related to penetrating injury to indicate gas-forming infection. Necrotizing fasciitis completely excluded. AP Worsening RLE abscess/swelling sp drainage at the ER hx traumatic wound Possibility of necrotizing fasciitis on initial CT read No overt sepsis for now Add IV Ertapenem (Imipenem contraindicated with patient's history of seizures), Clindamycin to IV Vancomycin for appropriate coverage for possible necrotizing fasciitis. Stop Ceftriaxone. Follow official CT read Orthopedics consult in a.m. RE RLE cellulitis/abscess status post drainage possible necrotizing fasciitis on initial CT read N.p.o. for now in anticipation of debridement procedure. Patient updated of developments and plan of care at bedside. Will relay to AM provider. Results & Data Vital Signs (Past 12 Hours) Vital Signs Temp Pulse Resp BP Pulse Ox 07/26/18 00:09 36.9 C 67 18 114/75 97 07/25/18 15:34 37.0 C 75 18 120/74 96
[2018-07-26] MEDS ORDERED: IMIPENEM/CILASTATIN CONSULT ACTIVE PRN (01:38)
[2018-07-26] MEDS ORDERED: CLINDAMYCIN CONSULT ACTIVE PRN (01:48)
[2018-07-26] MEDS ORDERED: IMIPENEM/CILASTATIN SODIUM 1,000 MG in DEXTROSE 5% 250 ML IV SCH (02:00)
[2018-07-26] MEDS ORDERED: HYDROmorphone INJ 0.5 MG/0.5 ML SYR IV STA (02:18)
[2018-07-26] MEDS ORDERED: ERTAPENEM SODIUM 1,000 MG in SODIUM CHLORIDE 0.9% 50 ML IV SCH (03:00)
[2018-07-26] MEDS: VANCOMYCIN HCL 1,750 MG in SODIUM CHLORIDE 0.9% 500 ML IV SCH ×3 (05:00→23:09)
--- NOTE | 2018-07-26 06:31 | Ultrasound Report ---
US venous doppler LE LT CLINICAL HISTORY: Left leg swelling COMPARISON STUDY: No previous studies for comparison. FINDINGS: Real-time and color flow Doppler imaging were performed. Flow was seen within the femoral, popliteal and calf veins with no intraluminal thrombus demonstrated. The saphenous vein is patent. IMPRESSION: No evidence of left lower extremity DVT. Electronically signed by: Tae Junior M.D. 07/26/2018 6:30 AM
--- NOTE | 2018-07-26 07:13 | CT Scan Report ---
LEFT ANKLE CT CT DOSE: 493.41 mGy.cm HISTORY: worsening L ankle swelling, hx abscess drainage TECHNIQUE: Multiaxial CT images of the left ankle were performed and reformatted in the sagittal and coronal plane following the use of intravenous contrast. A dose lowering technique was utilized adhe ring to the principles of ALARA. COMPARISON: Left ankle ultrasound 07/25/2018. FINDINGS: Subcutaneous fat stranding, edema, and skin thickening along the medial aspect of the ankle . There is associated 1.3 focus of subcutaneous gas within the medial ankle. Therefore, this is herminia rning for soft tissue infection/cellulitis. The gas could be related to penetrating injury, developin g abscess, or a necrotizing fasciitis. Due to this area of thickening there is a superficial vein whi ch is thrombosed. This appears to represent the distal greater saphenous vein. This also demonstrates wall enhancement consistent with a thrombophlebitis. No cortical destruction or periosteal reaction to suggest osteomyelitis at this time. No fracture or dislocation within the left ankle. IMPRESSION: 1. A 1.3 cm focus of subcutaneous gas within the medial ankle with associated skin thickening and sub cutaneous edema. Therefore, this is concerning for soft tissue infection/cellulitis. The gas could be related to penetrating injury, developing abscess, or a necrotizing fasciitis. 2. The distal greater saphenous vein is thrombosed deep to this area of suspected infection within th e medial ankle. Electronically signed by: Emil Wilson M.D. 07/26/2018 7:12 AM
[2018-07-26 07:24] LABS: BUN Creatinine Ratio 12.4 (10-20); Calcium 8.5 mg/dl (8.5-10.1); Creatinine Clr Calc Pharmacy 172.6 ml/min; Est GFR (African American) 129.6; Est GFR (Non-African American) 111.8
[2018-07-26 07:33] LABS: Hematocrit (blood only) 38.6 % (42-52); Mean Corpuscular Hgb Conc 36.3 g/dL (32-36); Mean Corpuscular Volume 89.4 fL (80-100); Mean Platelet Volume 9.4 fL (7.4-10.4); Platelet Count 262 K/uL (130-400); RDW Coefficient of Variation 12.2 % (11.5-14.5); RDW Standard Deviation 39.9 fL (36.4-46.3); Red Blood Count 4.32 M/uL (4.7-6.1); White Blood Count 10.15 K/uL (4.8-10.8)
[2018-07-26] MEDS: HALOPERIDOL 5 MG TAB PO SCH ×3 (07:52→20:36)
[2018-07-26] MEDS: BENZTROPINE MESYLATE 0.5 MG TAB PO SCH ×2 (07:52→12:54)
[2018-07-26] MEDS: DOCUSATE SODIUM 100 MG CAP PO SCH ×2 (07:52→20:38)
[2018-07-26] MEDS: PROPRANOLOL HCL 60 MG LA CAP PO SCH (07:53)
[2018-07-26] MEDS: VENLAFAXINE HCL XR 37.5 MG CAPXR PO SCH (07:53)
[2018-07-26] MEDS: BENZTROPINE MESYLATE 1 MG TAB PO SCH ×2 (07:53→20:38)
[2018-07-26] MEDS: VENLAFAXINE HCL XR 75 MG CAPXR PO SCH (07:54)
[2018-07-26] MEDS ORDERED: ERTAPENEM CONSULT ACTIVE PRN (09:00)
[2018-07-26] MEDS: CLINDAMYCIN 900 MG in DEXTROSE 5% 50 ML IV SCH ×2 (10:12→17:57)
[2018-07-26] MEDS ORDERED: HYDROCODONE/ACETAMOPHEN 5/325MG TAB PO PRN (11:38)
[2018-07-26] MEDS ORDERED: VANCOMYCIN TROUGH ONE (12:30)
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
[2018-07-26] MEDS ORDERED: PROPOFOL IV EMULSION 10 MG/ML 20 ML VIAL IV ONE (14:27)
[2018-07-26] MEDS ORDERED: LIDOCAINE HCL 2% 2 ML VIAL/AMP(20MG/ML) INFIL ONE (14:27)
[2018-07-26] MEDS ORDERED: fentaNYL citrate 100 MCG/2 ML VIAL ONE ×2 (14:27→15:38)
[2018-07-26] MEDS ORDERED: MIDAZOLAM HCL 1 MG/ML 2ML VIAL ONE (14:27)
[2018-07-26] MEDS ORDERED: BACITRACIN INJ 50,000 UNIT VIAL ONE (14:42)
--- NOTE | 2018-07-26 14:50 | Anesthesiology Consultation ---
Date of Service July 26, 2018 Assessment & Plan Chart Review Chart Review: Acceptable Risk for Surgery and Patient NOT seen in Pre Admission Testing Consults Requested none ASA ASA3 Proposed Anesthesia Anesthesia Type: General Risk / Benefits Reviewed With: PT / POA / Parent / Guardian, Accepts Plan and Informed Consent Obtained History Surgery Operation Date: 07/26/18 14:35 Proposed Procedures p Left Lower Extremity Incision and Drainage - Noam Phillips, Height/Weight Height: 6 ft 2 in Weight: 138 kg Allergies Allergy/AdvReac Type Severity Reaction Status Date / Time codeine Allergy Mild Unknown Verified 07/26/18 14:17 Penicillins Allergy Mild Unknown Verified 07/26/18 14:17 amoxicillin Allergy Unknown Verified 07/26/18 14:17 bee venom protein (honey bee) Allergy Unknown Verified 07/26/18 14:17 Medications Home Medications Medication Instructions Recorded Confirmed Last Taken benztropine 0.5 mg PO .QAM & 1400 07/25/18 07/25/18 07/24/18 benztropine 1 mg PO BID 07/25/18 07/25/18 07/24/18 clonidine HCl 0.3 mg PO TID 07/25/18 07/25/18 07/24/18 diphenhydramine HCl [Benadryl] 50 mg PO HS 07/25/18 07/25/18 07/24/18 haloperidol 2.5 mg PO . Q 1400 07/25/18 07/25/18 07/24/18 haloperidol 5 mg PO BID 07/25/18 07/25/18 07/24/18 hydroxyzine pamoate [Vistaril] 50 mg PO Q8 PRN 07/25/18 07/25/18 07/24/18 ibuprofen 600 mg PO Q6H PRN 07/25/18 07/25/18 07/24/18 lidocaine 1 patch TOPICAL DAILY PRN 07/25/18 07/25/18 Unknown methocarbamol [Robaxin] 1,000 mg PO TID PRN 07/25/18 07/25/18 07/24/18 propranolol 60 mg PO QAM 07/25/18 07/25/18 07/24/18 sulfamethoxazole-trimethoprim 1 tab PO Q12H 07/25/18 07/25/18 07/24/18 [Bactrim DS] venlafaxine [Effexor XR] 37.5 mg PO QAM 07/25/18 07/25/18 07/24/18 venlafaxine [Effexor XR] 150 mg PO QAM 07/25/18 07/25/18 07/25/18 Active Medications Generic Name Dose Route Start Last Admin Trade Name Freq PRN Reason Stop Dose Admin Hydrocodone Bitart/Acetaminophen 1 - 2 tab 07/26/18 11:38 07/26/18 12:05 [place] 5/325 PO 08/08/18 11:32 2 tab Q4H PRN Administration Pain Benztropine Mesylate 1 mg 07/25/18 21:00 07/26/18 07:53 Cogentin PO 08/24/18 20:59 1 mg BID ROSALIE Administration Benztropine Mesylate 0.5 mg 07/25/18 14:00 07/26/18 12:54 Cogentin PO 08/24/18 13:59 0.5 mg BID@0900,1400 ROSALIE Administration Clonidine HCl 0.3 mg 07/25/18 14:00 07/26/18 12:55 Catapress PO 08/24/18 13:59 0.3 mg TID ROSALIE Administration Diphenhydramine HCl 50 mg 07/25/18 21:00 07/25/18 21:34 Benadryl Capsule PO 08/24/18 20:59 50 mg HS ROSALIE Administration Docusate Sodium 100 mg 07/25/18 16:30 07/26/18 07:52 Colace PO 08/24/18 16:29 100 mg BID ROSALIE Administration Haloperidol 2.5 mg 07/25/18 14:00 07/26/18 12:54 Haldol PO 08/24/18 13:59 2.5 mg 1400 ROSALIE Administration Haloperidol 5 mg 07/25/18 21:00 07/26/18 07:52 Haldol PO 08/24/18 20:59 5 mg BID ROSALIE Administration Hydromorphone HCl 1 mg 07/25/18 11:33 07/26/18 14:02 Dilaudid IV 08/08/18 11:32 1 mg Q3H PRN Administration Pain Hydroxyzine HCl 50 mg 07/25/18 11:33 07/25/18 21:36 Vistaril PO 08/24/18 11:32 50 mg Q8 PRN Administration Anxiety Vancomycin HCl 1,750 mg/ 535 mls @ 200 mls/hr 07/25/18 21:00 07/26/18 12:53 Sodium Chloride IV 07/26/18 16:00 200 mls/hr Q8H ROSALIE Administration Protocol Promethazine HCl 12.5 mg/ 50.5 mls @ 202 mls/hr 07/25/18 18:46 07/25/18 19:45 Sodium Chloride IV 08/24/18 18:45 Infused Q8H PRN Infusion Nausea And Vomiting Potassium Chloride/Sodium Chloride 20 meq in 1,000 mls @ 75 mls/hr 07/25/18 23:45 07/26/18 12:54 Normal Saline W/20 Meq Kcl IV 08/24/18 23:44 75 mls/hr .[id number] ROSALIE Administration Clindamycin Phosphate 900 mg/ 56 mls @ 112 mls/hr 07/26/18 10:00 07/26/18 10:44 Dextrose IV 08/05/18 09:59 Infused Q8H ROSALIE Infusion Ioversol 125 ml 07/25/18 23:59 07/25/18 23:59 Optiray 320 125ml IV 07/29/18 23:58 119 ml ONCE PRN Administration Interaction Checking Lidocaine 1 patch 07/25/18 11:33 07/25/18 15:54 Lidoderm 5% TD 1 patch DAILY PRN Administration Pain Methocarbamol 1,000 mg 07/25/18 11:33 07/25/18 15:53 Robaxin PO 08/24/18 11:32 1,000 mg TID PRN Administration Pain Miscellaneous 1 ea 07/25/18 21:00 07/25/18 21:36 Remove Lidoderm Patch N/A 08/24/18 20:59 1 ea DAILY@2100 ROSALIE Administration Nicotine Polacrilex 1 piece 07/25/18 11:33 07/26/18 07:54 Nicorette 2mg MT 08/24/18 11:32 1 piece PRN PRN Administration tobacco abuse Propranolol HCl 60 mg 07/26/18 09:00 07/26/18 07:53 Inderal La PO 08/25/18 08:59 60 mg QAM ROSALIE Administration Venlafaxine HCl 37.5 mg 07/26/18 09:00 07/26/18 07:53 Effexor Extended Release PO 08/25/18 08:59 37.5 mg QAM ROSALIE Administration Venlafaxine HCl 150 mg 07/26/18 09:00 07/26/18 07:54 Effexor Extended Release PO 08/25/18 08:59 150 mg QAM ROSALIE Administration NPO Date Last Intake of Fluids: 07/25/18 Time Last Intake of Fluids: 22:00 Last Intake of Fluids Comment: Sips of water with meds today. Date Last Intake of Solids: 07/26/18 Time Last Intake of Solids: 08:00 Past Medical History Medical History History of seizure Abscess of right lower extremity Cellulitis (Acute) Tourette syndrome History of MRSA infection Exercise / Class Metabolic Activity III < 4 Walking/Shop/Light housework Past Anesthesia History No Hx of Anesthesia Complications and No Family Hx of Anesthesia Complications History of PONV No Hx of PONV and No Hx of Motion Sickness Social History Smoking Status: Current every day smoker tobacco type: cigarettes Smoking cigarettes per day: 20 Do You Dip or Chew Tobacco: No Hx Alcohol Use: No Hx Substance Use: Yes substance use type: marijuana Substance Use Type Other:: on Medical Marijuana for RSD (less than 1 joint's worth a day) Last Used Substance: Unknown Last Used Substance Other:: off opiates for RSD Physical Exam Vital Signs Last Vital Signs Temp 36.8 C 07/26/18 14:14 Pulse 59 L 07/26/18 14:14 Resp 20 07/26/18 14:14 BP 109/81 07/26/18 14:14 Pulse Ox 96 07/26/18 14:14 Constitutional + morbidly obese ENMT Mouth: + dentition abnormality, + dental caries and + poor dentition Thyromental Distance: > or= 3.5 Finger Breadths Mallampati Class: II Neck normal visual inspection, trachea midline and + facial hair; neck extension not limited Respiratory normal respiratory effort Auscultation: lungs clear to auscultation bilaterally Cardiovascular Rate/Rhythm: regular rate and regular rhythm Heart Sounds: no murmur Musculoskeletal Spine: normal cervical ROM Neurologic moves all extremities Motor/Sensory: no sensory deficit Psychiatric Orientation: alert and oriented x 3 Testing Electrocardiogram Date: 07/25/18 Findings: + NSR @ (at 88;minor NS IVCD) Chest X-Ray Date: 07/25/18 Findings: + NAD
--- NOTE | 2018-07-26 14:56 | History & Physical Bridge Note ---
Date of Service July 26, 2018 History & Physical Bridge Note I have examined the patient, reviewed the History & Physical and in the interval since the performance of the History & Physical I have noted the following changes of clinical significance: no changes noted
[2018-07-26] MEDS: LEVOFLOXACIN/D5W 750 MG/150 ML BAG IV SCH (14:59)
[2018-07-26] MEDS ORDERED: ONDANSETRON INJ 2 MG/ML 2 ML VIAL IV PRN ×2 (15:20→16:11)
[2018-07-26] MEDS ORDERED: FLUMAZENIL 0.1 MG/1 ML 10 ML VIAL IV PRN (15:20)
[2018-07-26] MEDS ORDERED: ATROPINE SULFATE 0.1 MG/ML 10ML SYR IV PRN (15:20)
[2018-07-26] MEDS ORDERED: ePHEDrine sulfate 50 MG/ML AMP IV PRN (15:20)
[2018-07-26] MEDS ORDERED: PROMETHAZINE HCL 12.5 MG in SODIUM CHLORIDE 0.9% 50 ML IV PRN (15:20)
[2018-07-26] MEDS ORDERED: NALOXONE HCL 0.4 MG/1 ML VIAL/CARP IV PRN ×2 (15:20→16:11)
[2018-07-26] MEDS ORDERED: ONDANSETRON INJ 2 MG/ML 2 ML VIAL ONE (15:39)
[2018-07-26] MEDS ORDERED: KETOROLAC 30 MG/ML VIAL ONE (15:39)
--- NOTE | 2018-07-26 16:04 | Post Operative Brief Note ---
Immediate Post Op Note v1 Date of Surgery July 26, 2018 Pre & Post Diagnosis Operation Date: 07/26/18 14:35 Pre-Op Diagnosis: Left Ankle Abcess/Cellulitis Post-Op Diagnosis: Left Ankle Abcess/Cellulitis Procedure Operation Date: 07/26/18 14:35 Actual Procedures p Left Lower Extremity Incision and Drainage(Left) - Noam Phillips DO Surgeon Noam Phillips DO Fire Extinguisher Tester none Estimated Blood Loss 45 Findings Consistent with Post-Op Diagnosis Fluids 300 cc LR Specimens wound cultures x 2 Drains Other (Wound vac, medial distal tibia) Anesthesia Type General Complications none Disposition Disposition: Recovery Room Overlapping Procedure I was present for: the critical portions of procedure. I was immediately available: during the entire case. Back up surgeon: was not required during procedure.
[2018-07-26] MEDS ORDERED: METOCLOPRAMIDE HCL INJ 5 MG/ML 2 ML VIAL IV PRN (16:11)
[2018-07-26] MEDS ORDERED: BISACODYL 10 MG SUPP PR PRN (16:11)
[2018-07-26] MEDS: fentaNYL citrate 100 MCG/2 ML VIAL IV PRN ×4 (16:38→16:55)
--- NOTE | 2018-07-26 17:08 | Hospitalist Progress Note ---
Date of Service July 26, 2018 Assessment & Plan (1) Cellulitis: (2) Abscess of left lower extremity: Was sent from the [facility] from left ankle abscess, erythema and tenderness. He was starting on Bactrim yesterday. LLE extremities U/S showed hematoma versus abscess medial aspect left ankle. Dimensions are 3.9 x 3.5 cm. Left ankle xray showed medial soft tissue edema. 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 as per documentation from the [facility] Chronic pain Reflex sympathetic dystrophy Was prescribed vapor marijuana, but has not been getting it at the [facility] for about 2 weeks Has been getting dilaudid and percocet round the clock Will consult pain management Anxiety Depression Continue Effexor 187.5 daily Propranolol for the anxiety Continue Vystaryl prn Tourette Syndrome Continue haloperidol his current dose ADHD Ritalin was taper off by provider at the [facility] DVT px Will encourage pt to ambulate (No anticoagulant due to recent I&D) (No SCDS due to cellulitis/ pain and I&D in left L ankle CODE status FULL CODE Disposition Was being treated at the [facility] Consult correctional counselor/case manager Subjective Pt was seen and examined Lying in bed with no distress Pt said that he continues to have alot of pain He said that the pain medication does not seem to last Denies any chest pain, palpitation, dizziness, fever and SOB Physical Exam Physical Exam: General- No acute distress Head- atraumatic Eyes- PERRL, EOMI, ENT- oropharynx clear Neck- supple, no JVD Lungs- clear to auscultation Heart- regular rhythm; no murmur Abdomen- normal bowel sounds, soft, nontender, obese Extremities- no calf tenderness, Left medial ankle area redness, swelling, open area from I&D with drainage Neuro- alert, oriented x 3; PERRL, EOMI; no facial palsy; no dysarthria Skin- warm & dry Results & Data Vital Signs (Past 12 Hours) Vital Signs Temp Pulse Pulse Resp BP BP Pulse Ox 07/26/18 17:00 68 15 122/84 97 07/26/18 16:50 69 10 L 128/92 96 07/26/18 16:40 65 17 127/77 96 07/26/18 16:30 63 10 L 130/81 98 07/26/18 16:20 70 14 111/82 99 07/26/18 16:10 36.0 C L 63 13 117/77 99 07/26/18 14:14 36.8 C 59 L 20 109/81 96 07/26/18 12:50 60 111/75 07/26/18 07:39 36.7 C 62 18 107/71 96
--- NOTE | 2018-07-26 17:26 | Anesthesiology Progress Note ---
Date of Service July 26, 2018 Anesthesia Post Procedure Vital Signs Vital Signs: Temp Pulse Pulse Resp BP BP Pulse Ox 07/26/18 17:20 69 12 110/72 99 07/26/18 17:10 65 14 107/66 98 07/26/18 17:00 68 15 122/84 97 07/26/18 16:50 69 10 L 128/92 96 07/26/18 16:40 65 17 127/77 96 07/26/18 16:30 63 10 L 130/81 98 07/26/18 16:20 70 14 111/82 99 07/26/18 16:10 36.0 C L 63 13 117/77 99 07/26/18 14:14 36.8 C 59 L 20 109/81 96 07/26/18 12:50 60 111/75 07/26/18 07:39 36.7 C 62 18 107/71 96 07/26/18 00:09 36.9 C 67 18 114/75 97 Pain Intensity Left Ankle: Pain Intensity: 5 Transfer of Care Handoff Completed per policy Notes Mental Status: alert / awake / arousable Patient Amnestic to Procedure: Yes Nausea / Vomiting: adequately controlled Pain: adequately controlled Airway Patency, RR, SpO2: stable & adequate BP & HR: stable & adequate Hydration State: stable & adequate Anesthetic Complications: no major complications apparent
[2018-07-26] MEDS: SODIUM CHLORIDE 0.9% 1000ML 1,000 ML IV SCH (17:57)
[2018-07-26] MEDS: KETOROLAC 30 MG/ML VIAL IV SCH ×2 (18:02→23:57)
[2018-07-26] MEDS: OXYCODONE HCL IR 5 MG TAB (IMMEDIATE RELEASE) PO PRN ×2 (18:26→23:08)
[2018-07-26] MEDS: OXYCODONE HCL 10 MG TABCR (OXYCONTIN) PO SCH (20:35)
[2018-07-26] MEDS: SENNA 8.6 MG TAB PO SCH (20:42)
[2018-07-26] MEDS ORDERED: DOCUSATE SODIUM 100 MG CAP PO SCH (21:00)
--- NOTE | 2018-07-26 22:07 | Orthopedic Progress Note ---
Date of Service July 26, 2018 Assessment & Plan (1) Abscess of left lower extremity: s/p I+D LLE, wound vac application -IV abx vanco/levaquin -WBAT LLE -Ice/elevation -PT/OT -Wound care consultation -DVT ppx - Heparin sq, may DC on ASA BID -AM labs -Follow IO cultures Subjective Post Operative Progress Note Patient seen in PACU, comfortable, denies complaints, pain well controlled, no acute issues. Review of Systems Review of Systems: All systems reviewed & are unremarkable except as noted in HPI & below Constitutional: as per Subjective / HPI Physical Exam Physical Exam: LLE NVSI +EHL/FHL/TA/GS SILT grossly, +2 DP pulse, compartments soft NT, wound vac in place. Constitutional: WD/WN, vitals as above Results & Data Vital Signs (Past 12 Hours) Vital Signs Temp Pulse Pulse Pulse Resp BP BP 07/26/18 20:33 36.5 C 63 18 112/73 07/26/18 19:44 36.6 C 64 108/69 07/26/18 18:34 36.7 C 65 20 116/73 07/26/18 18:08 36.9 C 71 20 114/69 07/26/18 17:30 36.2 C L 70 12 103/66 07/26/18 17:20 69 12 110/72 07/26/18 17:10 65 14 107/66 07/26/18 17:00 68 15 122/84 07/26/18 16:50 69 10 L 128/92 07/26/18 16:40 65 17 127/77 07/26/18 16:30 63 10 L 130/81 07/26/18 16:20 70 14 111/82 07/26/18 16:10 36.0 C L 63 13 117/77 07/26/18 14:14 36.8 C 59 L 20 109/81 07/26/18 12:50 60 111/75 Pulse Ox 07/26/18 20:33 98 07/26/18 19:44 96 07/26/18 18:34 95 07/26/18 18:08 95 07/26/18 17:30 99 07/26/18 17:20 99 07/26/18 17:10 98 07/26/18 17:00 97 07/26/18 16:50 96 07/26/18 16:40 96 07/26/18 16:30 98 07/26/18 16:20 99 07/26/18 16:10 99 07/26/18 14:14 96 07/26/18 12:50
[2018-07-26] MEDS: ACETAMINOPHEN 500 MG TAB PO SCH (22:20)
[2018-07-27] MEDS: HYDROmorphone INJ 1 MG/ML SYRINGE IV PRN ×7 (00:53→22:33)
[2018-07-27] MEDS: CLINDAMYCIN 900 MG in DEXTROSE 5% 50 ML IV SCH ×3 (01:55→17:39)
[2018-07-27] MEDS: OXYCODONE HCL IR 5 MG TAB (IMMEDIATE RELEASE) PO PRN ×2 (04:05→11:28)
[2018-07-27] MEDS: NICOTINE POLACRILEX 2 MG GUM MT PRN ×3 (04:06→21:21)
[2018-07-27] MEDS: SODIUM CHLORIDE 0.9% 1000ML 1,000 ML IV SCH (04:11)
[2018-07-27] MEDS: KETOROLAC 30 MG/ML VIAL IV SCH ×2 (06:10→12:35)
[2018-07-27] MEDS: HEPARIN SOD 5,000 UNIT/0.5 ML VIAL SQ SCH ×3 (06:10→21:27)
[2018-07-27] MEDS: ACETAMINOPHEN 500 MG TAB PO SCH ×3 (06:10→21:25)
[2018-07-27 06:22] LABS: Hematocrit (blood only) 36.1 % (42-52); Hemoglobin 12.5 g/dL (14.0-18.0); Mean Corpuscular Hgb Conc 34.6 g/dL (32-36); Mean Corpuscular Volume 89.8 fL (80-100); Mean Platelet Volume 9.2 fL (7.4-10.4); Platelet Count 278 K/uL (130-400); RDW Coefficient of Variation 12.1 % (11.5-14.5); RDW Standard Deviation 39.8 fL (36.4-46.3); Red Blood Count 4.02 M/uL (4.7-6.1); White Blood Count 8.69 K/uL (4.8-10.8)
[2018-07-27 06:54] LABS: BUN Creatinine Ratio 10.8 (10-20); Calcium 8.8 mg/dl (8.5-10.1); Creatinine Clr Calc Pharmacy 171.5 ml/min; Est GFR (African American) 129.6; Est GFR (Non-African American) 111.8; Potassium 4.2 mmol/L (3.5-5.1)
[2018-07-27] MEDS: DOCUSATE SODIUM 100 MG CAP PO SCH ×2 (09:10→21:26)
[2018-07-27] MEDS: OXYCODONE HCL 10 MG TABCR (OXYCONTIN) PO SCH (09:10)
[2018-07-27] MEDS: BENZTROPINE MESYLATE 0.5 MG TAB PO SCH ×2 (09:11→13:47)
[2018-07-27] MEDS: HALOPERIDOL 5 MG TAB PO SCH ×3 (09:12→21:24)
[2018-07-27] MEDS: VENLAFAXINE HCL XR 37.5 MG CAPXR PO SCH (09:13)
[2018-07-27] MEDS: BENZTROPINE MESYLATE 1 MG TAB PO SCH ×2 (09:13→21:23)
[2018-07-27] MEDS: VENLAFAXINE HCL XR 75 MG CAPXR PO SCH (09:14)
[2018-07-27] MEDS: MULTIVITAMIN TAB PO SCH (09:14)
[2018-07-27] MEDS: PROPRANOLOL HCL 60 MG LA CAP PO SCH (09:16)
[2018-07-27] MEDS: VANCOMYCIN HCL 1,750 MG in SODIUM CHLORIDE 0.9% 500 ML IV SCH ×2 (09:20→18:33)
--- NOTE | 2018-07-27 09:42 | Orthopedic Progress Note ---
Date of Service July 27, 2018 POD #1 s/p Left Lower Extremity Incision and Drainage Assessment & Plan (1) Abscess of left lower extremity: POD #1 s/p I+D LLE, wound vac application -IV abx vanco/levaquin -WBAT LLE -Ice/elevation -PT/OT -Wound care consultation -DVT ppx - Heparin sq, june DC on ASA BID Subjective he is resting comfortably in bed, denies complaints, pain well controlled. denies fever/chills Physical Exam Musculoskeletal: Left lower extremity: NVDI, +EHL/FHL/TA/GS SILT grossly, +2 DP pulse, compartments soft NT, wound vac in place. Results & Data Vital Signs (Past 12 Hours) Vital Signs Temp Pulse Resp BP BP Pulse Ox 07/27/18 07:28 36.4 C L 62 18 113/74 95 07/27/18 04:40 111/67 07/27/18 03:58 36.6 C 64 18 102/63 103/74 96 07/26/18 23:00 36.7 C 66 18 116/77 96 Laboratory Results Laboratory Results WBC 8.69 K/uL (4.8-10.8) 07/27/18 05:38 RBC 4.02 M/uL (4.7-6.1) L 07/27/18 05:38 Hgb 12.5 g/dL (14.0-18.0) L 07/27/18 05:38 Hct 36.1 % (42-52) L 07/27/18 05:38 MCV 89.8 fL (80-100) 07/27/18 05:38 MCH 31.1 pg (25-34) 07/27/18 05:38 MCHC 34.6 g/dL (32-36) 07/27/18 05:38 RDW Std Deviation 39.8 fL (36.4-46.3) 07/27/18 05:38 RDW Coeff of Leon 12.1 % (11.5-14.5) 07/27/18 05:38 Plt Count 278 K/uL (130-400) 07/27/18 05:38 MPV 9.2 fL (7.4-10.4) 07/27/18 05:38 Immature Gran % (Auto) 0.5 % 07/25/18 06:23 Neut % (Auto) 81.7 % 07/25/18 06:23 Lymph % (Auto) 8.1 % 07/25/18 06:23 [place] % (Auto) 9.1 % 07/25/18 06:23 Eos % (Auto) 0.4 % 07/25/18 06:23 Baso % (Auto) 0.2 % 07/25/18 06:23 Immature Gran # (Auto) 0.11 K/uL (0.00-0.02) H 07/25/18 06:23 Neut # (Auto) 18.13 K/uL (1.4-6.5) H 07/25/18 06:23 Lymph # (Auto) 1.81 K/uL (1.2-3.4) 07/25/18 06:23 [place] # (Auto) 2.03 K/uL (0.11-0.59) H 07/25/18 06:23 Eos # (Auto) 0.09 K/uL (0-0.5) 07/25/18 06:23 Baso # (Auto) 0.05 K/uL (0-0.2) 07/25/18 06:23 PT 10.8 Seconds (9.0-12.0) 07/25/18 06:23 INR 1.1 (0.9-1.1) 07/25/18 06:23 APTT 30.0 Seconds (21.0-31.0) 07/25/18 06:23 PTT Ratio 1.1 07/25/18 06:23 Sodium 140 mmol/L (136-145) 07/27/18 05:38 Potassium 4.2 mmol/L (3.5-5.1) 07/27/18 05:38 Chloride 109 mmol/L (98-107) H 07/27/18 05:38 Carbon Dioxide 25 mmol/L (21-32) 07/27/18 05:38 6.0 (3-11) 07/27/18 05:38 BUN 10 mg/dl (7-18) 07/27/18 05:38 0.90 mg/dl (0.6-1.4) 07/27/18 05:38 Est Cr Clr Drug Dosing 171.5 ml/min 07/27/18 05:38 Est GFR ( Amer) 129.6 07/27/18 05:38 Est GFR (Non-Af Amer) 111.8 07/27/18 05:38 10.8 (10-20) 07/27/18 05:38 Glucose 70 mg/dl (70-99) 07/27/18 05:38 1.0 mmol/L (0.4-2.0) 07/25/18 06:25 Calcium 8.8 mg/dl (8.5-10.1) 07/27/18 05:38 1.0 mg/dl (0.2-1) 07/25/18 06:23 AST 12 U/L (15-37) L 07/25/18 06:23 ALT 25 U/L (12-78) 07/25/18 06:23 72 U/L (45-117) 07/25/18 06:23 110 U/L (39-308) 07/25/18 06:23 CK-MB (CK-2) < 1.0 ng/ml (0.5-3.6) 07/25/18 06:23 CK/CKMB % Calc TNP 07/25/18 06:23 < 0.015 ng/ml (0-0.045) 07/25/18 06:23 9.3 gm/dl (6.4-8.2) H 07/25/18 06:23 3.7 gm/dl (3.4-5.0) 07/25/18 06:23 5.6 gm/dl (2.5-4.0) H 07/25/18 06:23 0.7 (0.9-2) L 07/25/18 06:23 Vancomycin Trough 18.5 mcg/ml (See Comment) 07/26/18 12:24 Diagnostic Findings Procedure Result Verified Site Gram Stain Final 07/25/18-1058 Gram Stain Result Few WBCs Seen No Organisms Seen Surface Wound Culture Preliminary 07/26/18-1249 Organism 1 Gram positive cocci Quantity Moderate Sens Sensitivities Dependent on Further Ident ification
--- NOTE | 2018-07-27 12:51 | Hospitalist Progress Note ---
Date of Service July 27, 2018 Assessment & Plan (1) Cellulitis: (2) Abscess of left lower extremity: Was sent from the [facility] from left ankle abscess, erythema and tenderness. He was starting on Bactrim yesterday. LLE extremities U/S showed hematoma versus abscess medial aspect left ankle. Dimensions are 3.9 x 3.5 cm. Left ankle xray showed medial soft tissue edema. 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 as per documentation from the [facility] Chronic pain Reflex sympathetic dystrophy Has been getting dilaudid and percocet round the clock Will consult pain management Anxiety Depression Continue Effexor 187.5 daily Propranolol for the anxiety Continue Vystaryl prn Tourette Syndrome Continue haloperidol his current dose ADHD Ritalin was taper off by provider at the [facility] DVT px Will encourage pt to ambulate (No anticoagulant due to recent I&D) (No SCDS due to cellulitis/ pain and I&D in left L ankle CODE status FULL CODE Disposition Was being treated at the [facility] on ASA BID ROS-No Headache, No Visual Changes, No Nausea, No Vomiting, +Fever, +Chills, +Malaise, No Neck Pain or Stiffness, No Chest Pain, No Palpitations, No SOB, No MARTINEZ, No Cough, No Sputum, No Wheezing, No Abdominal Pain, No Diarrhea, No Hematemesis, No Hemoptysis, No Unexpected Weight Loss, No Flank pain, No Melena, No Hematochezia, No Frequency, No Urgency, No Burning, No Hematuria, No Rashes, No Diaphoresis. Appetite is Poor, c/o pain LLE Physical Exam Gen-AAO x 3, NAD, Afebrile, Obese Head-NCAT, EOMI, PERRLA, Anicteric Sclera, No Posterior Pharyngeal Erythema Neck-Supple, No JVD, No Thyromegaly, No Masses, No LAD, No Bruits Lungs-Clear to Auscultation Bilaterally, No Rales, No Rhonchi, No Wheezing, No Crepitus Chest-No S4, +S1, +S2, No S3, No Murmurs, No Rubs, No Gallops, No Ectopy Abdomen-Soft, Bowel Sounds Present, Non Tender, Non Distended, No Hepatomegaly, No Splenomegaly, No Palpable Masses, No Rebound, No Rigidity, No Guarding Musculoskeletal-Full Range of Motion Bilaterally, No CVAT Extremities-No Cyanosis, No Clubbing, No Edema, LLE wrapped c Wound vac in place Nuero-Cranial Nerves II-XII grossly intact, Motor WNL, DTRs WNL, Strength WNL, Non Focal Psych-Normal Mood Results & Data Vital Signs (Past 12 Hours) Vital Signs Temp Pulse Resp BP BP Pulse Ox 07/27/18 07:28 36.4 C L 62 18 113/74 95 07/27/18 04:40 111/67 07/27/18 03:58 36.6 C 64 18 102/63 103/74 96 Current Diagnoses Cutaneous abscess of left lower limb (07/25/18) Cellulitis, unspecified (07/25/18) Allergies codeine Allergy (Mild, Verified 07/26/18 14:17) Unknown Penicillins Allergy (Mild, Verified 07/26/18 14:17) Unknown amoxicillin Allergy (Verified 07/26/18 14:17) Unknown bee venom protein (honey bee) Allergy (Verified 07/26/18 14:17) Unknown Height/Weight/Isolation Height 6 ft 2 in Weight 136.4 kg Isolation Type Contact Precautions Chemistry 07/26/18 07/27/18 06:40 05:38 Sodium 139 D 140 Potassium 4.0 4.2 Chloride 107 109 H Carbon Dioxide 23 25 Anion Gap 8.0 6.0 BUN 11 10 Creatinine 0.90 D 0.90 Glucose 86 70 Microbiology 07/25/18 06:23 Blood Aerobic Blood Culture - Preliminary No growth in Aerobic bottle after 48 hours. 07/25/18 06:23 Blood Anaerobic Blood Culture - Preliminary No growth in Anaerobic bottle after 48 hours. 07/25/18 06:42 Blood Aerobic Blood Culture - Preliminary No growth in Aerobic bottle after 48 hours. 07/25/18 06:42 Blood Anaerobic Blood Culture - Preliminary No growth in Anaerobic bottle after 48 hours. 07/25/18 06:05 Ankle,Left Gram Stain - Final 07/25/18 06:05 Ankle,Left Wound Culture - Preliminary Gram positive cocci 07/26/18 Unknown Leg,Left Gram Stain - Final 07/26/18 Unknown Leg,Left Aerobic and Anaerobic Culture - Pending
[2018-07-27] MEDS: LEVOFLOXACIN/D5W 750 MG/150 ML BAG IV SCH (13:44)
--- NOTE | 2018-07-27 15:09 | Pain Management Consultation ---
Date of Consultation July 27, 2018 Assessment & Plan (1) Pain of left lower leg: * Post operative pain * Recommend d/c oxycodone and oxycodone ER * Continue IV hydromorphone * Add oral hydromorphone and transition fully to oral over next 24 hrs. * Resume patients medical Cannibis upon discharge which was effective previously. My need a short (2 day) prescription of mild opioid such as Hydrocodone for break through pain. Do not recommend long-acting opioids. * [place] PDMP reviewed. Noted that patient is receiving his psychiatric meds from consistent provider consistent pharmacies. Patient is not getting any opioids. * Patient should be co-prescribed Narcan if patient discharged an outpatient o pioids for postoperative pain. * Interventional therapy not recommended the present time, as there is no evidence of active complex regional pain syndrome symptoms. Present on Admission?: Yes (2) CRPS (complex regional pain syndrome): * No evidence of active disease at this time. * Continue to monitor. * Resume medical cannabis on discharge. Complex regional pain syndrome type: type I Complex regional pain syndrome affected site: lower extremity Laterality: left Qualified Code(s): G90.522 - Complex regional pain syndrome I of left lower limb History of Present Illness Reason for Consultation: Left distal leg pain post I&D of abscess Attending Physician: Dhaval Yung DO History of Present Illness Daniel Leiva is a 33 year make admitted to [facility] with left lower extremity pain after I&D of an abscess. The has a history of CRPS of the right upper extremity and left lower extremity. Previously he has been treated with anti-neuropathic medications, interventional therapies, multiple opioids and rehabilitative therapy. For last 2 years, he has been on medical cannabis and has used hydromorphone orally once or twice a month. His current main complaint is not CRPS symptoms, but post operative pain form the I&D of the abscess. He is currently ordered IV hydromorphone, oral oxycodone, oxycodone ER and tramadol. He has significant co-morbid psychiatric conditions and is under current ps ychiatric care. Consolation was requested to obtain recommendations regarding his current pain symptoms. Pain Assessment Pain scale - at its best (0-10): 4 Allergies Allergy/AdvReac Type Severity Reaction Status Date / Time codeine Allergy Mild Unknown Verified 07/26/18 14:17 Penicillins Allergy Mild Unknown Verified 07/26/18 14:17 amoxicillin Allergy Unknown Verified 07/26/18 14:17 bee venom protein (honey bee) Allergy Unknown Verified 07/26/18 14:17 Home Medications Home Medications Medication Instructions Recorded Confirmed Type benztropine 0.5 mg PO .QAM & 1400 07/25/18 07/25/18 History benztropine 1 mg PO BID 07/25/18 07/25/18 History clonidine HCl 0.3 mg PO TID 07/25/18 07/25/18 History diphenhydramine HCl [Benadryl] 50 mg PO HS 07/25/18 07/25/18 History haloperidol 2.5 mg PO . Q 1400 07/25/18 07/25/18 History haloperidol 5 mg PO BID 07/25/18 07/25/18 History hydroxyzine pamoate [Vistaril] 50 mg PO Q8 PRN 07/25/18 07/25/18 History ibuprofen 600 mg PO Q6H PRN 07/25/18 07/25/18 History lidocaine 1 patch TOPICAL DAILY PRN 07/25/18 07/25/18 History methocarbamol [Robaxin] 1,000 mg PO TID PRN 07/25/18 07/25/18 History propranolol 60 mg PO QAM 07/25/18 07/25/18 History sulfamethoxazole-trimethoprim 1 tab PO Q12H 07/25/18 07/25/18 History [Bactrim DS] venlafaxine [Effexor XR] 37.5 mg PO QAM 07/25/18 07/25/18 History venlafaxine [Effexor XR] 150 mg PO QAM 07/25/18 07/25/18 History Pain History Chief Complaint Chief Complaint: Distal right lower extremity post operative pain. Pain Location Full Body Front + Back: 1. Pain Intensity [facility] Combined Pain Scale: 5-Moderate - Cannot perform normal tasks without increase in pain Pain scale - at its best (0-10): 4 Cause Cause of Pain: Spontaneous Timing Timing: constant Character Pain character: burning and dull Functional Limitations [facility] Combined Function Scale: 7-Severe Limitations - Minimal chores. Needs help 70% of the time. Co-morbid Psychosocial [facility] Anxiety Scale: 6-Mod to Severe - Worry/nervousness all day. Change in sleep [facility] Depression Scale: 5-Moderate - Feels sad most of the day. 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 Beliefs That Will Affect Care: None Current Living Situation: Alone and Other Current Living Situation Comment: At [facility] for medication adjustment for Tourette syndrome Other Information That Helps Us Care for You: Yes (History of RSDS (reflex sympathetic dystrophy syndrome)) Feels Safe at Home: Yes Safety Concerns: Feels Safe At This Time Smoking Status: Current every day smoker Tobacco Type: cigarettes Cigarettes Per Day: 20 Do You Dip or Chew Tobacco: No Second Hand Exposure: No Tobacco Cessation Education Requested by Patient: No Hx Alcohol Use: No Hx Substance Use: Yes substance use type: marijuana Substance Use Type Other:: on Medical Marijuana for RSD (less than 1 joint's worth a day) Last Used Substance: Unknown Last Used Substance Other:: off opiates for RSD Physical Exam Constitutional: WD/WN, vitals as above cooperative; no acute distress Eyes: PERRL, conjunctivae normal, anicteric sclerae + dilated pupils Skin: normal turgor; no rashes, no lesions, no ulcers, no dry skin, no ecchymosis and no erythema No cyanosis, no vasomotor changes, no trophic changes. Mild edema left foot. Normal hair and skin texture. Neurologic: patellar DTR's 2+ bilat, sensation intact Psychiatric: A+Ox3, euthymic affect
[2018-07-27] MEDS: HYDROmorphone HCL 2 MG TAB PO PRN ×3 (15:26→21:27)
[2018-07-27] MEDS: KETOROLAC TROMETHAMINE 15 MG/ML VIAL IV PRN (17:39)
[2018-07-27] MEDS: METHOCARBAMOL 500 MG TABLET PO PRN (18:30)
[2018-07-27] MEDS ORDERED: HYDROmorphone INJ 0.5 MG/0.5 ML SYR IV STA (19:19)
[2018-07-27] MEDS: CeleBREX 200 MG CAP PO SCH (21:22)
[2018-07-27] MEDS: SENNA 8.6 MG TAB PO SCH (21:25)
[2018-07-28] MEDS: HYDROmorphone HCL 2 MG TAB PO PRN ×4 (00:31→19:26)
[2018-07-28] MEDS: CLINDAMYCIN 900 MG in DEXTROSE 5% 50 ML IV SCH ×3 (01:29→18:19)
[2018-07-28] MEDS: HYDROmorphone INJ 1 MG/ML SYRINGE IV PRN ×6 (01:32→21:45)
[2018-07-28] MEDS ORDERED: VANCOMYCIN TROUGH ONE (04:30)
[2018-07-28 04:49] LABS: Hematocrit (blood only) 38.6 % (42-52); Hemoglobin 13.4 g/dL (14.0-18.0); Mean Corpuscular Hgb Conc 34.7 g/dL (32-36); Mean Corpuscular Volume 90.4 fL (80-100); Mean Platelet Volume 9.2 fL (7.4-10.4); Platelet Count 312 K/uL (130-400); RDW Standard Deviation 39.2 fL (36.4-46.3); Red Blood Count 4.27 M/uL (4.7-6.1); White Blood Count 6.91 K/uL (4.8-10.8)
[2018-07-28 05:07] LABS: BUN Creatinine Ratio 8.9 (10-20); Calcium 9.2 mg/dl (8.5-10.1); Creatinine Clr Calc Pharmacy 167.8 ml/min; Est GFR (African American) 126.2; Est GFR (Non-African American) 108.9
[2018-07-28] MEDS: HEPARIN SOD 5,000 UNIT/0.5 ML VIAL SQ SCH ×3 (05:51→21:41)
[2018-07-28] MEDS: VANCOMYCIN HCL 1,750 MG in SODIUM CHLORIDE 0.9% 500 ML IV SCH ×2 (05:51→15:57)
[2018-07-28] MEDS: ACETAMINOPHEN 500 MG TAB PO SCH ×3 (05:52→21:40)
--- NOTE | 2018-07-28 08:31 | Orthopedic Progress Note ---
Date of Service July 28, 2018 Assessment & Plan (1) Abscess of left lower extremity: POD #2 s/p I+D LLE, wound vac application -IV abx vanco/levaquin -WBAT LLE -Ice/elevation -PT/OT -Wound care consultation - wound vac change 07/29/18 -Pain medications per pain management, recs appreciated -DVT ppx - Heparin sq, may DC on ASA BID Subjective Post Operative Progress Note Patient seen sitting up in bed, comfortable, admits to increased pain today, denies complaints, no acute issues. Review of Systems Review of Systems: All systems reviewed & are unremarkable except as noted in HPI & below Constitutional: as per Subjective / HPI Physical Exam Physical Exam: LLE NVSI +EHL/FHL/TA/GS SILT grossly, +2 DP pulse, compartments soft NT, dressing cdi. decreased swelling calf Constitutional: WD/WN, vitals as above Results & Data Vital Signs (Past 12 Hours) Vital Signs Temp Pulse Resp BP Pulse Ox 07/28/18 07:43 36.5 C 62 20 125/87 97 07/27/18 23:35 36.4 C L 70 19 118/76 96
[2018-07-28] MEDS: PROPRANOLOL HCL 60 MG LA CAP PO SCH (08:45)
[2018-07-28] MEDS: VENLAFAXINE HCL XR 37.5 MG CAPXR PO SCH (08:45)
[2018-07-28] MEDS: VENLAFAXINE HCL XR 75 MG CAPXR PO SCH (08:46)
[2018-07-28] MEDS: MULTIVITAMIN TAB PO SCH (08:46)
[2018-07-28] MEDS: DOCUSATE SODIUM 100 MG CAP PO SCH ×2 (08:46→21:45)
[2018-07-28] MEDS: BENZTROPINE MESYLATE 0.5 MG TAB PO SCH ×2 (08:46→14:08)
[2018-07-28] MEDS: CeleBREX 200 MG CAP PO SCH ×2 (08:47→21:42)
[2018-07-28] MEDS: HALOPERIDOL 5 MG TAB PO SCH ×3 (08:47→21:42)
[2018-07-28] MEDS: BENZTROPINE MESYLATE 1 MG TAB PO SCH ×2 (08:48→21:39)
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
--- NOTE | 2018-07-28 09:48 | Pharmacy Report ---
Pharmacy Abx Dose Short Note - Date of Service July 28, 2018 - Assessment & Plan Assessment 33 year old M receiving vancomycin/levaquin/clindamycin for treatment of cellulitis/abscess of ankle Day #4 of antimicrobial therapy. Plan Vancomycin * Trough level of came back therapeutic at 15.8 mcg/ml (goal 15-20 mcg/ml) * Will continue same vancomycin regimen of 1750 mg iv q 10 hrs - renal function remains stable * Will plan to recheck trough in next 2-3 days or sooner if renal function changes * Ankle cx growing strep species, leg cx now positive for Gm+ cocci - will f/u may be able to deescalate once final cultures return Clindamycin 900 mg IV q8h - continue same Levofloxacin 750 mg Q24 hr - continue same Pharmacy will continue to follow and will adjust dose/frequency as necessary. Thank you.
--- NOTE | 2018-07-28 11:20 | Hospitalist Progress Note ---
Date of Service July 28, 2018 Assessment & Plan (1) Cellulitis: (2) Abscess of left lower extremity: Was sent from the [facility] from left ankle abscess, erythema and tenderness. He was starting on Bactrim yesterday. LLE extremities U/S showed hematoma versus abscess medial aspect left ankle. Dimensions are 3.9 x 3.5 cm. Left ankle xray showed medial soft tissue edema. 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 Chronic pain Reflex sympathetic dystrophy Was prescribed vapor marijuana, but has not been getting it at the [facility] for about 2 weeks Has been getting dilaudid and percocet round the clock Will consult pain management Anxiety Depression Continue Effexor 187.5 daily Propranolol for the anxiety Continue Vystaryl prn Tourette Syndrome Continue haloperidol his current dose ADHD Ritalin was taper off by provider at the [facility] DVT px Will encourage pt to ambulate (No anticoagulant due to recent I&D) (No SCDS due to cellulitis/ pain and I&D in left L ankle CODE status FULL CODE Disposition-plan on group home facility Wednesday after wound VAC change Was being treated at the [facility] Consult case finisher Results & Data Vital Signs (Past 12 Hours) Vital Signs Temp Pulse Resp BP Pulse Ox 07/28/18 07:43 36.5 C 62 20 125/87 97 07/27/18 23:35 36.4 C L 70 19 118/76 96 Current Diagnoses Complex regional pain syndrome I of left lower limb (07/25/18) Cutaneous abscess of left lower limb (07/25/18) Cellulitis, unspecified (07/25/18) Pain in left lower leg (07/25/18) Allergies codeine Allergy (Mild, Verified 07/26/18 14:17) Unknown Penicillins Allergy (Mild, Verified 07/26/18 14:17) Unknown amoxicillin Allergy (Verified 07/26/18 14:17) Unknown bee venom protein (honey bee) Allergy (Verified 07/26/18 14:17) Unknown Height/Weight/Isolation Height 6 ft 2 in Weight 138.4 kg Isolation Type Contact Precautions Chemistry 07/27/18 07/28/18 05:38 04:27 Sodium 140 136 Potassium 4.2 4.0 Chloride 109 H 104 Carbon Dioxide 25 28 Anion Gap 6.0 4.0 BUN 10 8 Creatinine 0.90 0.92 Glucose 70 83 Microbiology 07/25/18 06:05 Ankle,Left Gram Stain - Final 07/25/18 06:05 Ankle,Left Wound Culture - Final Alpha strep. not enterococcus 07/26/18 Unknown Leg,Left Gram Stain - Final 07/26/18 Unknown Leg,Left Aerobic and Anaerobic Culture - Preliminary Gram positive cocci 07/25/18 06:23 Blood Aerobic Blood Culture - Preliminary No growth in Aerobic bottle after 48 hours. 07/25/18 06:23 Blood Anaerobic Blood Culture - Preliminary No growth in Anaerobic bottle after 48 hours. 07/25/18 06:42 Blood Aerobic Blood Culture - Preliminary No growth in Aerobic bottle after 48 hours. 07/25/18 06:42 Blood Anaerobic Blood Culture - Preliminary No growth in Anaerobic bottle after 48 hours.
[2018-07-28] MEDS: LEVOFLOXACIN/D5W 750 MG/150 ML BAG IV SCH (14:07)
[2018-07-28] MEDS: SENNA 8.6 MG TAB PO SCH (21:43)
[2018-07-29] MEDS: HYDROmorphone HCL 2 MG TAB PO PRN ×6 (01:06→22:45)
[2018-07-29] MEDS: VANCOMYCIN HCL 1,750 MG in SODIUM CHLORIDE 0.9% 500 ML IV SCH ×2 (01:06→11:59)
[2018-07-29] MEDS: CLINDAMYCIN 900 MG in DEXTROSE 5% 50 ML IV SCH ×3 (01:37→17:25)
[2018-07-29] MEDS: ACETAMINOPHEN 500 MG TAB PO SCH ×3 (05:37→22:45)
[2018-07-29] MEDS: HEPARIN SOD 5,000 UNIT/0.5 ML VIAL SQ SCH ×3 (05:37→22:46)
[2018-07-29 07:57] LABS: Hematocrit (blood only) 38.9 % (42-52); Hemoglobin 13.8 g/dL (14.0-18.0); Mean Corpuscular Hgb Conc 35.5 g/dL (32-36); Mean Corpuscular Volume 89.8 fL (80-100); Mean Platelet Volume 8.8 fL (7.4-10.4); Platelet Count 350 K/uL (130-400); RDW Coefficient of Variation 11.9 % (11.5-14.5); RDW Standard Deviation 39.1 fL (36.4-46.3); Red Blood Count 4.33 M/uL (4.7-6.1); White Blood Count 6.32 K/uL (4.8-10.8)
[2018-07-29 08:34] LABS: BUN Creatinine Ratio 8.5 (10-20); Calcium 9.5 mg/dl (8.5-10.1); Creatinine Clr Calc Pharmacy 165.9 ml/min; Est GFR (African American) 124.6; Est GFR (Non-African American) 107.5
--- NOTE | 2018-07-29 08:52 | Hospitalist Progress Note ---
Date of Service July 29, 2018 Assessment & Plan (1) Cellulitis: (2) Abscess of left lower extremity: Was sent from the [facility] from left ankle abscess, erythema and tenderness. He was starting on Bactrim yesterday. LLE extremities U/S showed hematoma versus abscess medial aspect left ankle. Dimensions are 3.9 x 3.5 cm. Left ankle xray showed medial soft tissue edema. 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 Chronic pain Reflex sympathetic dystrophy Was prescribed vapor marijuana, but has not been getting it at the [facility] for about 2 weeks Anxiety/Depression Continue Effexor 187.5 daily Propranolol for the anxiety Continue Vistaril prn Tourette Syndrome Continue haloperidol his current dose ADHD Ritalin was taper off by provider at the [facility] DVT px Will encourage pt to ambulate (No anticoagulant due to recent I&D) (No SCDS due to cellulitis/ pain and I&D in left L ankle CODE status FULL CODE Disposition-plan on fdc facility Wednesday after wound VAC change Was being treated at the [facility] ID eval for Antibiotic input Results & Data Vital Signs (Past 12 Hours) Vital Signs Temp Pulse Resp BP Pulse Ox 07/29/18 07:32 36.6 C 61 16 137/94 95 07/28/18 23:39 36.4 C L 60 18 123/85 96 Current Diagnoses Complex regional pain syndrome I of left lower limb (07/25/18) Cutaneous abscess of left lower limb (07/25/18) Cellulitis, unspecified (07/25/18) Pain in left lower leg (07/25/18) Allergies codeine Allergy (Mild, Verified 07/26/18 14:17) Unknown Penicillins Allergy (Mild, Verified 07/26/18 14:17) Unknown amoxicillin Allergy (Verified 07/26/18 14:17) Unknown bee venom protein (honey bee) Allergy (Verified 07/26/18 14:17) Unknown Height/Weight/Isolation Height 6 ft 2 in Weight 136.3 kg Isolation Type Contact Precautions Chemistry 07/28/18 07/29/18 04:27 07:36 Sodium 136 137 Potassium 4.0 4.0 Chloride 104 104 Carbon Dioxide 28 27 Anion Gap 4.0 6.0 BUN 8 8 Creatinine 0.92 0.93 Glucose 83 93 Microbiology 07/25/18 06:05 Ankle,Left Gram Stain - Final 07/25/18 06:05 Ankle,Left Wound Culture - Final Alpha strep. not enterococcus 07/26/18 Unknown Leg,Left Gram Stain - Final 07/26/18 Unknown Leg,Left Aerobic and Anaerobic Culture - Preliminary Gram positive cocci 07/25/18 06:23 Blood Aerobic Blood Culture - Preliminary No growth in Aerobic bottle after 48 hours. 07/25/18 06:23 Blood Anaerobic Blood Culture - Preliminary No growth in Anaerobic bottle after 48 hours. 07/25/18 06:42 Blood Aerobic Blood Culture - Preliminary No growth in Aerobic bottle after 48 hours. 07/25/18 06:42 Blood Anaerobic Blood Culture - Preliminary No growth in Anaerobic bottle after 48 hours.
[2018-07-29] MEDS: DOCUSATE SODIUM 100 MG CAP PO SCH ×2 (09:15→20:56)
[2018-07-29] MEDS: HYDROmorphone INJ 1 MG/ML SYRINGE IV PRN ×3 (09:15→20:53)
[2018-07-29] MEDS: CeleBREX 200 MG CAP PO SCH ×2 (09:15→20:58)
[2018-07-29] MEDS: VENLAFAXINE HCL XR 37.5 MG CAPXR PO SCH (09:15)
[2018-07-29] MEDS: PROPRANOLOL HCL 60 MG LA CAP PO SCH (09:16)
[2018-07-29] MEDS: BENZTROPINE MESYLATE 1 MG TAB PO SCH ×2 (09:16→20:59)
[2018-07-29] MEDS: HALOPERIDOL 5 MG TAB PO SCH ×3 (09:16→20:56)
[2018-07-29] MEDS: BENZTROPINE MESYLATE 0.5 MG TAB PO SCH ×2 (09:16→14:26)
[2018-07-29] MEDS: KETOROLAC TROMETHAMINE 15 MG/ML VIAL IV PRN (09:53)
--- NOTE | 2018-07-29 10:32 | Infectious Disease Consult ---
Date of Consultation July 29, 2018 Assessment & Plan (1) Abscess of left lower extremity: will continue clinda IV for now, and stop others, hopefully this will help with appetite. suggest probiotic as well. would give min 21 days of clinda, can change to po when eating, 300mg po tid. will need continued vac care upon d/c. states he will not be following in this area and will be returning to [facility] for continued care. History of Present Illness Attending Physician: Dhaval Yung DO pt admitted with left ankle wound, ultrasound done showed 3.8x3.5 cm collection, ct showed 1.3cm collection with gas. went to OR on 07/26 I&D and vac placement. Cultures from 07/25 and OR cultures on 07/26 growing alpha strep, no sensitivies done. pt started on clinda, vanco and levauin, remains on this. States initial injury happened about 2 weeks ago while on a jet ski in [place]. [facility], states he will be d/c [facility]. Blood cultures negative, afebrile since admission but does admit to subjective fevers aircraft captain. was given bactrim for a few days aircraft captain but no relief in pain, redness or swelling. still having pain but states redness and swelling have greatly improved. tolerating abx but states poor appetite, no n/v/d. no abd pain, no cp, sob, cough. Initial wbc 22 now 6, creat nml. ID asked to eval for abx selection and duration of therapy. undergoing vac change on my eval. Allergies Allergy/AdvReac Type Severity Reaction Status Date / Time codeine Allergy Mild Unknown Verified 07/26/18 14:17 Penicillins Allergy Mild Unknown Verified 07/26/18 14:17 amoxicillin Allergy Unknown Verified 07/26/18 14:17 bee venom protein (honey bee) Allergy Unknown Verified 07/26/18 14:17 Home Medications Home Medications Medication Instructions Recorded Confirmed Type benztropine 0.5 mg PO .QAM & 1400 07/25/18 07/25/18 History benztropine 1 mg PO BID 07/25/18 07/25/18 History clonidine HCl 0.3 mg PO TID 07/25/18 07/25/18 History diphenhydramine HCl [Benadryl] 50 mg PO HS 07/25/18 07/25/18 History haloperidol 2.5 mg PO . Q 1400 07/25/18 07/25/18 History haloperidol 5 mg PO BID 07/25/18 07/25/18 History hydroxyzine pamoate [Vistaril] 50 mg PO Q8 PRN 07/25/18 07/25/18 History ibuprofen 600 mg PO Q6H PRN 07/25/18 07/25/18 History lidocaine 1 patch TOPICAL DAILY PRN 07/25/18 07/25/18 History methocarbamol [Robaxin] 1,000 mg PO TID PRN 07/25/18 07/25/18 History propranolol 60 mg PO QAM 07/25/18 07/25/18 History sulfamethoxazole-trimethoprim 1 tab PO Q12H 07/25/18 07/25/18 History [Bactrim DS] venlafaxine [Effexor XR] 37.5 mg PO QAM 07/25/18 07/25/18 History venlafaxine [Effexor XR] 150 mg PO QAM 07/25/18 07/25/18 History Patient History Medical History History of seizure Abscess of right lower extremity Cellulitis (Acute) Tourette syndrome History of MRSA infection Social History Preferred Language: Korean Communication Ability: Effective 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 Beliefs That Will Affect Care: None Current Living Situation: Alone and Other Current Living Situation Comment: At [facility] for medication adjustment for Tourette syndrome Other Information That Helps Us Care for You: Yes (History of RSDS (reflex sympathetic dystrophy syndrome)) Feels Safe at Home: Yes Safety Concerns: Feels Safe At This Time Smoking Status: Current every day smoker Tobacco Type: cigarettes Cigarettes Per Day: 20 Do You Dip or Chew Tobacco: Yes Second Hand Exposure: No Tobacco Cessation Education Requested by Patient: No Hx Alcohol Use: No Hx Substance Use: Yes substance use type: marijuana Substance Use Type Other:: on Medical Marijuana for RSD (less than 1 joint's worth a day) Last Used Substance: Unknown Last Used Substance Other:: off opiates for RSD Review of Systems Review of Systems: All systems reviewed & are unremarkable except as noted in HPI & below Physical Exam Constitutional: WD/WN, vitals as above Eyes: PERRL, conjunctivae normal, anicteric sclerae ENMT: external ear and nose normal, oropharynx normal Neck: trachea midline, no thyromegaly normal visual inspection Respiratory: normal respiratory effort, lungs clear to auscultation Cardiovascular: RRR, no murmur, no edema Gastrointestinal (Abdomen): normal bowel sounds, soft, nontender, no hepatosplenomegaly Musculoskeletal: no cyanosis or clubbing, extremities motor strength 5/5 Skin: no rashes, warm and dry left medial ankle wound with granulation tissue,bleeding, no surrounding warmth, tenderness, no purulence, no necrosis Psychiatric: A+Ox3, euthymic affect Results & Data Vital Signs (Past 12 Hours) Vital Signs Temp Pulse Resp BP Pulse Ox 07/29/18 07:32 36.6 C 61 16 137/94 95 07/28/18 23:39 36.4 C L 60 18 123/85 96 Laboratory Results Microbiology 07/25/18 06:05 Ankle,Left Gram Stain - Final 07/25/18 06:05 Ankle,Left Wound Culture - Final Alpha strep. not enterococcus 07/26/18 Unknown Leg,Left Gram Stain - Final 07/26/18 Unknown Leg,Left Aerobic and Anaerobic Culture - Preliminary Gram positive cocci 07/25/18 06:23 Blood Aerobic Blood Culture - Preliminary No growth in Aerobic bottle after 48 hours. 07/25/18 06:23 Blood Anaerobic Blood Culture - Preliminary No growth in Anaerobic bottle after 48 hours. 07/25/18 06:42 Blood Aerobic Blood Culture - Preliminary No growth in Aerobic bottle after 48 hours. 07/25/18 06:42 Blood Anaerobic Blood Culture - Preliminary No growth in Anaerobic bottle after 48 hours.
[2018-07-29] MEDS: MULTIVITAMIN TAB PO SCH (10:45)
[2018-07-29] MEDS: VENLAFAXINE HCL XR 75 MG CAPXR PO SCH (10:45)
[2018-07-29] MEDS: MAGNESIUM HYDROXIDE SUSP 30 ML UDC PO PRN (10:57)
--- NOTE | 2018-07-29 13:09 | Orthopedic Consultation ---
Date of Consultation July 29, 2018 Assessment & Plan (1) Abscess of left lower extremity: POD #2 s/p I+D LLE, wound vac application -IV abx vanco/levaquin -WBAT LLE -Ice/elevation -PT/OT -Wound care consultation - wound vac change 07/29/18 -Pain medications per pain management, recs appreciated -DVT ppx - Heparin sq, may DC on ASA BID History of Present Illness Attending Physician: Dhaval Yung DO Allergies Allergy/AdvReac Type Severity Reaction Status Date / Time codeine Allergy Mild Unknown Verified 07/26/18 14:17 Penicillins Allergy Mild Unknown Verified 07/26/18 14:17 amoxicillin Allergy Unknown Verified 07/26/18 14:17 bee venom protein (honey bee) Allergy Unknown Verified 07/26/18 14:17 Home Medications Home Medications Medication Instructions Recorded Confirmed Type benztropine 0.5 mg PO .QAM & 1400 07/25/18 07/25/18 History benztropine 1 mg PO BID 07/25/18 07/25/18 History clonidine HCl 0.3 mg PO TID 07/25/18 07/25/18 History diphenhydramine HCl [Benadryl] 50 mg PO HS 07/25/18 07/25/18 History haloperidol 2.5 mg PO . Q 1400 07/25/18 07/25/18 History haloperidol 5 mg PO BID 07/25/18 07/25/18 History hydroxyzine pamoate [Vistaril] 50 mg PO Q8 PRN 07/25/18 07/25/18 History ibuprofen 600 mg PO Q6H PRN 07/25/18 07/25/18 History lidocaine 1 patch TOPICAL DAILY PRN 07/25/18 07/25/18 History methocarbamol [Robaxin] 1,000 mg PO TID PRN 07/25/18 07/25/18 History propranolol 60 mg PO QAM 07/25/18 07/25/18 History sulfamethoxazole-trimethoprim 1 tab PO Q12H 07/25/18 07/25/18 History [Bactrim DS] venlafaxine [Effexor XR] 37.5 mg PO QAM 07/25/18 07/25/18 History venlafaxine [Effexor XR] 150 mg PO QAM 07/25/18 07/25/18 History Patient History Medical History History of seizure Abscess of right lower extremity Cellulitis (Acute) Tourette syndrome History of MRSA infection Social History Preferred Language: Estonian Communication Ability: Effective 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 Beliefs That Will Affect Care: None Current Living Situation: Alone and Other Current Living Situation Comment: At [facility] for medication adjustment for Tourette syndrome Other Information That Helps Us Care for You: Yes (History of RSDS (reflex sympathetic dystrophy syndrome)) Feels Safe at Home: Yes Safety Concerns: Feels Safe At This Time Smoking Status: Current every day smoker Tobacco Type: cigarettes Cigarettes Per Day: 20 Do You Dip or Chew Tobacco: Yes Second Hand Exposure: No Tobacco Cessation Education Requested by Patient: No Hx Alcohol Use: No Hx Substance Use: Yes substance use type: marijuana Substance Use Type Other:: on Medical Marijuana for RSD (less than 1 joint's worth a day) Last Used Subst ance: Unknown Last Used Substance Other:: off opiates for RSD Results & Data Vital Signs (Past 12 Hours) Vital Signs Temp Pulse Resp BP Pulse Ox 07/29/18 07:32 36.6 C 61 16 137/94 95
--- NOTE | 2018-07-29 13:16 | Orthopedic Progress Note ---
Date of Service July 29, 2018 Assessment & Plan (1) Abscess of left lower extremity: POD #3 s/p I+D LLE, wound vac application -IV abx Clindamycin--plan to change to PO Clindamycin when patient is tolerating eating. -WBAT LLE -Ice/elevation -PT/OT -Wound care consultation - wound vac change today, 07/29/18 -Pain medications per pain management, recs appreciated -DVT ppx - Heparin sq, may DC on ASA BID -Ortho to sign off. Follow up with Dr. Phillips in ~10 days from discharge. Subjective Post Operative Progress Note Main complaint today is pain medicine options. Feels IV Dilaudid prn and PO Dilaudid prn is not enough for him with hx of RSD and previous traumatic brain injury. No other complaints besides pain control. Physical Exam Constitutional: WD/WN, vitals as above Musculoskeletal: Left ankle: wound vac in place and functioning. Wound pictures reviewed from earlier dressing change--good granulation tissue. Mild erythema. No purulence or drainage at the wound. Psychiatric: A+Ox3, euthymic affect Results & Data Vital Signs (Past 12 Hours) Vital Signs Temp Pulse Resp BP Pulse Ox 07/29/18 07:32 36.6 C 61 16 137/94 95
[2018-07-29] MEDS ORDERED: LACTULOSE SYRUP 30 GM/45 ML UDP PO PRN (14:33)
[2018-07-29] MEDS: SENNA 8.6 MG TAB PO SCH (20:58)
[2018-07-30] MEDS: HYDROmorphone INJ 1 MG/ML SYRINGE IV PRN ×2 (00:39→03:37)
[2018-07-30] MEDS: HYDROmorphone HCL 2 MG TAB PO PRN ×4 (01:57→12:40)
[2018-07-30] MEDS: CLINDAMYCIN 900 MG in DEXTROSE 5% 50 ML IV SCH ×2 (01:58→10:12)
[2018-07-30] MEDS: MAGNESIUM HYDROXIDE SUSP 30 ML UDC PO PRN (04:10)
[2018-07-30] MEDS: ACETAMINOPHEN 500 MG TAB PO SCH (06:18)
[2018-07-30] MEDS: HEPARIN SOD 5,000 UNIT/0.5 ML VIAL SQ SCH (06:19)
--- NOTE | 2018-07-30 07:57 | Discharge Summary ---
Date of Service July 30, 2018 Admission HPI Per Admitting Provider 33 years old male with past medical history of myotonic dystrophy, reflex sympathetic dystrophy, chronic pain, depression, general anxiety, ADHD, PTSD was sent from the [facility] for left ankle redness, swelling and pain. Patient said last Wednesday while in [place], he said that he bumped his left ankle. He said that previously do not the area started to get red and painful. Patient said in the last few days the erythema swelling and tenderness got worse. He said that pain worsening with touching, standing or walking on his left foot. Pain improved with rest or with the pain med. Patient said that he started to have chills. He was started on double strength Bactrim yesterday. Patient has been in the [facility] in the past week. He said that he is on medical marijuana but he has not been using it since he got to the [facility]. In the ER the left ankle area incision and drainage was done by the ER physician. Patient said that he continued to have severe pain in the left ankle patient and has been asking for dilaudid. I called the [facility] to verify his medication list. denies any chest pain, palpitation, dizziness, and shortness of breath. Admission Exam Per Admitting Provider General- No acute distress Head- atraumatic Eyes- PERRL, EOMI, ENT- oropharynx clear Neck- supple, no JVD Lungs- clear to auscultation Heart- regular rhythm; no murmur Abdomen- normal bowel sounds, soft, nontender, obese Extremities- no calf tenderness, Left medial ankle area redness, swelling, open area from I&D with drainage Neuro- alert, oriented x 3; PERRL, EOMI; no facial palsy; no dysarthria Skin- warm & dry Principal Diagnosis LLE Abscess/Cellulitis s/p I&D Cellulitis Tourettes MRSA Hx Seizure Hx Discharge Exam ROS-No Headache, No Visual Changes, No Nausea, No Vomiting, No Fever, No Chills, No Neck Pain or Stiffness, No Chest Pain, No Palpitations, No SOB, No MARTINEZ, No Cough, No Sputum, No Wheezing, No Abdominal Pain, No Diarrhea, No Hematemesis, No Hemoptysis, No Unexpected Weight Loss, No Flank pain, No Melena, No Hematochezia, No Frequency, No Urgency, No Burning, No Hematuria, No Rashes, No Diaphoresis. Appetite is Normal Physical Exam Gen-AAO x 3, NAD, Afebrile Head-NCAT, EOMI, PERRLA, Anicteric Sclera, No Posterior Pharyngeal Erythema Neck-Supple, No JVD, No Thyromegaly, No Masses, No LAD, No Bruits Lungs-Clear to Auscultation Bilaterally, No Rales, No Rhonchi, No Wheezing, No Crepitus Chest-No S4, +S1, +S2, No S3, No Murmurs, No Rubs, No Gallops, No Ectopy Abdomen-Soft, Bowel Sounds Present, Non Tender, Non Distended, No Hepatomegaly, No Splenomegaly, No Palpable Masses, No Rebound, No Rigidity, No Guarding Musculoskeletal-Full Range of Motion Bilaterally, No CVAT Extremities-No Cyanosis, No Clubbing, No Edema Nuero-Cranial Nerves II-XII grossly intact, Motor WNL, DTRs WNL, Strength WNL, Non Focal Psych-Normal Mood Discharge Data Allergies Allergy/AdvReac Type Severity Reaction Status Date / Time codeine Allergy Mild Unknown Verified 07/26/18 14:17 Penicillins Allergy Mild Unknown Verified 07/26/18 14:17 amoxicillin Allergy Unknown Verified 07/26/18 14:17 bee venom protein (honey bee) Allergy Unknown Verified 07/26/18 14:17 Consultations 07/25/18 08:49 ED Decision to Admit Stat 07/25/18 11:33 Consult Case Management - Discharge Planning Routine 07/26/18 03:29 Consult Orthopedic Surgery Routine 07/26/18 16:11 Consult Case Management - Discharge Planning Routine 07/26/18 16:16 Consult Pain Management Routine 07/26/18 17:25 Consult Pain Management Routine 07/28/18 11:21 Consult Case Management - Discharge Planning Routine 07/29/18 08:48 Consult Infectious Diseases Routine Procedures Performed Operation Date: 07/26/18 14:35 Actual Procedures p Left Lower Extremity Incision and Drainage(Left) - Noam Phillips DO Ordered Studies 07/25/18 06:25 US extremity non-vascular ltd Stat 07/25/18 22:34 CT lower leg LT w con Urgent 07/25/18 22:36 US venous doppler LE LT Urgent Current Diagnoses Complex regional pain syndrome I of left lower limb (07/25/18) Cutaneous abscess of left lower limb (07/25/18) Cellulitis, unspecified (07/25/18) Pain in left lower leg (07/25/18) Allergies codeine Allergy (Mild, Verified 07/26/18 14:17) Unknown Penicillins Allergy (Mild, Verified 07/26/18 14:17) Unknown amoxicillin Allergy (Verified 07/26/18 14:17) Unknown bee venom protein (honey bee) Allergy (Verified 07/26/18 14:17) Unknown Height/Weight/Isolation Height 6 ft 2 in Weight 136.6 kg Isolation Type Contact Precautions Chemistry 07/29/18 07:36 Sodium 137 Potassium 4.0 Chloride 104 Carbon Dioxide 27 Anion Gap 6.0 BUN 8 Creatinine 0.93 Glucose 93 Microbiology 07/26/18 Unknown Leg,Left Gram Stain - Final 07/26/18 Unknown Leg,Left Aerobic and Anaerobic Culture - Preliminary Alpha strep. not enterococcus Hospital Course (1) Cellulitis: (2) Abscess of left lower extremity: Was sent from the [facility] from left ankle abscess, erythema and tenderness. He was starting on Bactrim SOFTWARE SECURITY CONSULTANT. LLE extremities U/S showed hematoma versus abscess medial aspect left ankle. Dimensions are 3.9 x 3.5 cm. Left ankle xray showed medial soft tissue edema. 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 as per documentation from the [facility] Chronic pain Reflex sympathetic dystrophy Was prescribed vapor marijuana, but has not been getting it at the [facility] for about 2 weeks Anxiety/Depression Continue Effexor 187.5 daily Propranolol for the anxiety Continue Vistaril prn Tourette Syndrome Continue haloperidol his current dose ADHD Ritalin was taper off by provider at the [facility] DVT px Will encourage pt to ambulate (No anticoagulant due to recent I&D) (No SCDS due to cellulitis/ pain and I&D in left L ankle CODE status FULL CODE Disposition-plan on jail facility today Was being treated at the [facility] 21 days IV Clinda Hydrocodone x 3 days c Narcan Total Time Total Time Spent Total Time Spent (In Minutes): 45 mins Total Time Includes: Examination of the Patient, Discharge Planning, Medication Reconciliation and Communication With Other Providers Discharge Plan Discharge Items Patient Disposition: Transfer Group Home Fac Reason For Visit: LEFT ANKLE ABSCESS/CELLULITIS Discharge Diagnosis: LLE Abscess/Cellulitis s/p I&D Cellulitis Tourettes MRSA Hx Seizure Hx Condition: Good Discharge Goals: Improve disease control and Improve function Activity: As commented below Activity Comment: WBAT Lifting: Gradually increase as tolerated Bathing: No limitations Sexual Activity: Wait until after follow-up appointment Exercise/Sports: None Driving/Machine Use: No limitations Weightbearing: Left toe touch and Right weightbearing Non-emergency contact: Primary Care Provider and Surgeon Call non-emergency contact if: you have any medication questions and your symptoms worsen Follow-up/Referrals: Noam Phillips DO [Physician] - (Follow up for wound check approximately 10 days after discharge.) PCP,NO [Physician] - Diet: Regular Addtl Provider Instructions: When Tolerating diet well may transition to PO Clindamycin 300 QID Prescriptions: New diphenhydramine HCl [Benadryl] 25 mg Capsule 25 mg PO Q8H PRN (Reason: itching) Qty: 30 RF: 0 celecoxib [Celebrex] 200 mg Capsule 200 mg PO BID Qty: 30 RF: 0 hydromorphone 2 mg Tablet 2 mg PO Q3H PRN (Reason: pain) Qty: 30 RF: 0 heparin, porcine (PF) 5,000 unit/0.5 mL Syringe 5,000 unit subcut Q8 Qty: 30 RF: 0 naloxone 0.4 mg/mL Solution 0.1 mg IV Q5M PRN (Reason: opioid reversal) Qty: 5 RF: 0 multivitamin [Daily-Cal] Tablet 1 tab PO QAM Qty: 30 RF: 0 sennosides [Senokot] 8.6 mg Tablet 17.2 mg PO HS Qty: 30 RF: 0 docusate sodium 100 mg Capsule 100 mg PO BID Qty: 30 RF: 0 clindamycin phosphate 900 mg/6 mL solution 900 mg IV Q8H Qty: 378 RF: 0 metoclopramide HCl [Reglan] 5 mg tablet 5 mg PO ACHS PRN (Reason: nausea and vomiting) Qty: 30 RF: 0 Continued venlafaxine [Effexor XR] 37.5 mg Capsule,Extended Release 24hr 37.5 mg PO QAM RF: 0 venlafaxine [Effexor XR] 75 mg Capsule,Extended Release 24hr 150 mg PO QAM RF: 0 clonidine HCl 0.3 mg Tablet 0.3 mg PO TID RF: 0 benztropine 1 mg Tablet 1 mg PO BID RF: 0 haloperidol 5 mg Tablet 5 mg PO BID RF: 0 haloperidol 5 mg Tablet 2.5 mg PO . Q 1400 RF: 0 propranolol 60 mg Capsule,Extended Release 24 Hr 60 mg PO QAM RF: 0 diphenhydramine HCl [Benadryl] 25 mg Capsule 50 mg PO HS RF: 0 benztropine 0.5 mg Tablet 0.5 mg PO .QAM & 1400 RF: 0 methocarbamol [Robaxin] 500 mg Tablet 1,000 mg PO TID PRN (Reason: Pain) RF: 0 lidocaine 4 % Adhesive Patch,Medicated 1 patch TOPICAL DAILY PRN (Reason: Pain) RF: 0 hydroxyzine pamoate [Vistaril] 50 mg Capsule 50 mg PO Q8 PRN (Reason: Anxiety) RF: 0 ibuprofen 600 mg Tablet 600 mg PO Q6H PRN (Reason: Pain) RF: 0 Discontinued sulfamethoxazole-trimethoprim [Bactrim DS] 800-160 mg Tablet 1 tab PO Q12H RF: 0 Stand-Alone Forms: [facility] Discharge Orders: Discharge Order (Routine); Ordered 07/30/18 Ordered By: Dhaval Yung Skilled Items Patient informed of condition?: Yes DNR: No Discharge Level of Care: Skilled Communicable Disease: No Discharge Prognosis: Stable Admission Data Admit Date/Time: 07/25/18 10:19 Attending Provider: Dhaval Yung Admit Provider: Fausto Wilson Primary Care Provider: Antonio Gallagher Other Providers: Herrera Chavez ; Fausto Wilson ; Milton Mancera ; Austin Latham ; Perez Jung ; Meghann Garcai ; Gabriel La ; Aniya Santos ; Bo Cadet ; Masoud Hong ; Basilio Gonzalez ; Howard Toledo ; Daniel Gonzalez. ; Basilio Pizarro ; Jaquan Galeana ; Franklyn Hollingsworth ; Dameon Kwok ; Mulugeta Velázquez ; Ramsey Simpson ; Edmundo Redmond ; Roman Hurt ; Aniya Schmidt ; Noam Phillips ; Augusto Gardner ; Tonny Reaves ; Nicole Simon Service: Medical Other Pending Studies at Discharge: No
[2018-07-30] MEDS: MULTIVITAMIN TAB PO SCH (08:28)
[2018-07-30] MEDS: VENLAFAXINE HCL XR 75 MG CAPXR PO SCH (08:28)
[2018-07-30] MEDS: BENZTROPINE MESYLATE 0.5 MG TAB PO SCH ×2 (08:28→12:41)
[2018-07-30] MEDS: DOCUSATE SODIUM 100 MG CAP PO SCH (08:28)
[2018-07-30] MEDS: VENLAFAXINE HCL XR 37.5 MG CAPXR PO SCH (08:28)
[2018-07-30] MEDS: BENZTROPINE MESYLATE 1 MG TAB PO SCH (08:28)
[2018-07-30] MEDS: PROPRANOLOL HCL 60 MG LA CAP PO SCH (08:29)
[2018-07-30] MEDS: HALOPERIDOL 5 MG TAB PO SCH ×2 (08:29→12:41)
[2018-07-30] MEDS: CeleBREX 200 MG CAP PO SCH (08:29)
[2018-07-30 09:30] LABS: Hematocrit (blood only) 40.8 % (42-52); Hemoglobin 14.5 g/dL (14.0-18.0); Mean Corpuscular Hgb Conc 35.5 g/dL (32-36); Mean Corpuscular Volume 89.3 fL (80-100); Mean Platelet Volume 8.8 fL (7.4-10.4); Platelet Count 312 K/uL (130-400); RDW Coefficient of Variation 11.9 % (11.5-14.5); RDW Standard Deviation 38.4 fL (36.4-46.3); Red Blood Count 4.57 M/uL (4.7-6.1); White Blood Count 9.57 K/uL (4.8-10.8)
[2018-07-30 09:46] LABS: BUN Creatinine Ratio 10.9 (10-20); Calcium 9.2 mg/dl (8.5-10.1); Creatinine Clr Calc Pharmacy 166.1 ml/min; Est GFR (African American) 124.6; Est GFR (Non-African American) 107.5; Potassium 3.8 mmol/L (3.5-5.1)
== END 2018-07-30 13:30 | DRG 603 ==
LOC: ED 06:03 → 4E 10:19 → SUATTDRO 10:19 → 4E 11:16